=== PATIENT | male | born 1950 | race Caucasian/White ===

== ENCOUNTER 2017-03-02 07:46 | Day surgery (SDC) | payer OTHER ==
[2017-02-02 08:36] VITALS: BMI 26.5
[2017-03-02] MEDS ORDERED: Bupivacaine-Epi 0.25%-1:200,000 PF Inj ONE (08:21)
[2017-03-02] MEDS ORDERED: cefOXitin IV 1 gm in Dextrose 1 GM/50 ML BAG IVPB ONE (08:21)
[2017-03-02] MEDS ORDERED: Lidocaine 1% Inj (20ml) ONE (08:21)
[2017-03-02] MEDS ORDERED: Propofol 10 mg/ml Inj (20 ML) ONE (08:33)
[2017-03-02] MEDS ORDERED: Midazolam 2 MG/2 ML VIAL ONE (08:33)
[2017-03-02] MEDS ORDERED: Lactated Ringer's 1,000 ML IV ONE ×3 (09:54→11:30)
[2017-03-02] MEDS ORDERED: Rocuronium 10 mg/ml (5 ml) ONE (10:03)
[2017-03-02] MEDS ORDERED: Phenylephrine 10 mg/ml Inj ONE (10:40)
[2017-03-02] MEDS ORDERED: HYDROmorphone 0.5 mg/0.5 ml ISec IVP PRN (10:44)
[2017-03-02] MEDS ORDERED: Lactated Ringer's 1,000 ML IV SCH (10:45)
--- NOTE | 2017-03-02 11:36 | PCM.SURG1 ---
Surgeon's Initial Post Op Note - Surgeon's Notes Surgeon: Dr. Wright Mandarin Teacher: Chantel Heart, PGY2; Julieta Valdes, OMS-III Pre-Operative Diagnosis: Cholelithiasis, cholecystitis Operative Findings: See operative report Post-Operative Diagnosis: same Operation Performed: laparoscopic cholecystectomy Specimen/Specimens Removed: gallbladder Estimated Blood Loss: EBL {In ML}: 5 Date of Surgery/Procedure: 03/02/17 Time of Surgery/Procedure: 09:15
[2017-03-02] MEDS ORDERED: Oxycodone/Acetaminophen 5/325 mg Tab PO PRN (13:00)
[2017-03-02 15:08] VITALS: BP 169/55; PULSE 63; RESP 18; TEMP 97.7; O2SAT 96
--- NOTE | 2017-03-16 14:54 | PCM.OP ---
Operative Report - Operative Report Date of Surgery/Procedure: 03/02/17 Time of Surgery/Procedure: 09:00 Surgeon: James Wright MD. Maintenance Worker Municipal: Chantel Heart MD. Anesthesia/Sedation: General anesthesia. Pre-Operative Diagnosis: 1. Chronic cholecystitis and cholelithiasis Post-Operative Diagnosis: 1. Chronic cholecystitis and cholelithiasis Indication for Surgery: 1. Chronic cholecystitis and cholelithiasis Operative Findings: Patient had changes of chronic cholecystitis and cholelithiasis. Procedure/Operation Description: 1. Laparoscopic cholecystectomy. 67 y/o male was diagnosed with chronic cholecystitis and cholelithiasis. Patient was consented for laparoscopic cholecystectomy, possible open. Taken to OR, placed supine on operating table. After induction of the anesthesia, abdomen was prepped and draped in the usual sterile fashion. A supraumbilical, transverse 1.5 cm incision was made. After incising skin, subcutaneous tissue and fascia, the Sunni port was placed and pneumoperitoneum was created. The 12 mm port was placed in the midline below costal margin. Two 5 mm ports were placed in midclavicular and intra-axillary line. After that, grasper and dissector were introduced and the gallbladder was retracted. Calot's triangle accessed. The cystic duct and cystic artery were identified and clipped at three places and cut in between two clips. The gallbladder and gall ducts were dissected free from the gallbladder fossa, taken in an endocatch bag, taken out through the umbilical port site and then sent for the pathology. Proper hemostasis in each and every part of the procedure, and all ports were taken out and then under vision, pneumo was deflated. The umbilical port site was closed in two layers; the fascia with 0-vicryl sutures, skin with a 4-0 monocryl at all the port sites. Dry, sterile dressing was applied. Patient tolerated procedure well. The count of instruments was correct. There were no apparent complications. Estimated Blood Loss: 10 cc. Drains: None. Complications: None. Specimen: Gallbladder with gallstones sent for pathology. Discharge & Condition: stable
== END 2017-03-02 14:55 | disposition home or self-care (01) ==
LOC: C.SDS 07:46
PROVIDERS: ATTEND Surgery Surgical Critical Care
DX: K80.10 Calculus of gallbladder with chronic cholecystitis without obstruction (principal)
CPT/HCPCS: 47562; 82948; 88304; J0360; J2250; J2370; J2704; J3010; J7030; J7070; J7120

== ENCOUNTER 2018-07-08 11:32 | Inpatient (IN) | payer OTHER ==
[2018-07-08 11:33] VITALS: BMI 26.2
--- NOTE | 2018-07-08 13:03 | C.PDOC ---
Time Seen by Provider: 07/08/18 12:10 Chief Complaint (Nursing): Medical Clearance Past Medical History Vital Signs: Last Vital Signs Temp 98.8 F 07/08/18 11:37 Pulse 76 07/08/18 11:56 Resp 16 07/08/18 11:56 BP 175/65 H 07/08/18 11:56 Pulse Ox 99 07/08/18 11:37 - Medical History PMH: Diabetes, Gall Bladder Disease, HTN, Kidney Stones (passed on own no intervention) Denies: Alzheimer's Disease, Anemia, Anxiety, Asthma, Bipolar Disorder, Bronchitis, Cardia Arrhythmia, CHF, COPD, Dementia, Depression, Emphysema, HIV, Hypercholesterolemia, Hyperthyroidism, Hypothyroidism, Migraine, Mitral Valve Prolapse, Paranoia, Parkinson's Disease, Peripheral Edema, Pneumonia, Post Traumatic Stress Disorder, Chronic Kidney Disease, Schizophrenia, Seizures, Sickle Cell Disease, Sexually Transmitted Disease, Sleep Apnea, TIA Surgical History: Cholecystectomy Denies: Coronary Stent, Pacemaker - [facility] Procedures EXCIS DEEP CERVICAL NODE (02/14/14) - Social History Hx Tobacco Use: No Hx Alcohol Use: No Hx Substance Use: No - Immunization History Hx Tetanus Toxoid Vaccination: No Hx Influenza Vaccination: No Hx Pneumococcal Vaccination: No ED Course And Treatment O2 Sat by Pulse Oximetry: 99 Disposition - Disposition Forms: [employer]it ([place])
--- NOTE | 2018-07-08 13:03 | C.PDOC ---
History Of Present Illness 68 y/o male, with PMHx of HTN, CKD, DM, presents to ED for hypotension onset this morning. As per family, pt was eating breakfast when he felt lightheaded and felt as if he will pass out. Blood pressure was measured at that time and was found to be 75/40s and blood sugar was found to be 221. Pt was brought here for evaluation. Denies headache, fever, chills, visual changes, nausea, vomiting, syncope, chest pain, shortness of breath, or recent illness. He states has has boil to right lower back that developed 3 weeks ago which he is treating with warm compresses, Bacitracin, and taking Keflex. Pt states he has shingles to right upper back which is being treated by his PCP. Time Seen by Provider: 07/08/18 12:10 Chief Complaint (Nursing): Medical Clearance History Per: Patient History/Exam Limitations: no limitations Recent travel outside of the [place]: No Additional History Per: Patient Past Medical History Reviewed: Historical Data, Nursing Documentation, Vital Signs Vital Signs: Last Vital Signs Temp 98.8 F 07/08/18 11:37 Pulse 76 07/08/18 11:56 Resp 16 07/08/18 11:56 BP 175/65 H 07/08/18 11:56 Pulse Ox 99 07/08/18 11:37 - Medical History PMH: Diabetes, Gall Bladder Disease, HTN, Kidney Stones (passed on own no intervention) Denies: Alzheimer's Disease, Anemia, Anxiety, Asthma, Bipolar Disorder, Bronchitis, Cardia Arrhythmia, CHF, COPD, Dementia, Depression, Emphysema, HIV, Hypercholesterolemia, Hyperthyroidism, Hypothyroidism, Migraine, Mitral Valve Prolapse, Paranoia, Parkinson's Disease, Peripheral Edema, Pneumonia, Post Traumatic Stress Disorder, Chronic Kidney Disease, Schizophrenia, Seizures, Sickle Cell Disease, Sexually Transmitted Disease, Sleep Apnea, TIA Surgical History: Cholecystectomy Denies: Coronary Stent, Pacemaker - [facility] Procedures EXCIS DEEP CERVICAL NODE (02/14/14) Family History: States: Unknown Family Hx - Social History Hx Tobacco Use: No Hx Alcohol Use: No Hx Substance Use: No - Immunization History Hx Tetanus Toxoid Vaccination: No Hx Influenza Vaccination: No Hx Pneumococcal Vaccination: No Review Of Systems Constitutional: Negative for: Fever, Chills Eyes: Negative for: Vision Change Cardiovascular: Positive for: Light Headedness. Negative for: Chest Pain, Palpitations Respiratory: Negative for: Cough, Shortness of Breath Gastrointestinal: Negative for: Nausea, Vomiting, Abdominal Pain Musculoskeletal: Negative for: Neck Pain, Back Pain Neurological: Negative for: Weakness, Numbness, Headache Physical Exam - Physical Exam Appears: Non-toxic, No Acute Distress Skin: Warm, Dry, Other (5 x 3cm area of indurated wound draining pus in the right lower back, no fluctuance; multiple plaque like lesion to right upper back, no vesicular lesion, no excoriation) Head: Atraumatic, Normacephalic Eye(s): bilateral: Normal Inspection, PERRL, EOMI Oral Mucosa: Moist Neck: Normal ROM, Supple Chest: Symmetrical, No Tenderness Cardiovascular: Murmur (systolic) Respiratory: Normal Breath Sounds, No Rales, No Rhonchi, No Wheezing Gastrointestinal/Abdominal: Soft, No Tenderness Back: No CVA Tenderness, No Vertebral Tenderness Extremity: Normal ROM Neurological/Psych: Oriented x3, Normal Speech ED Course And Treatment - Laboratory Results Result Diagrams: 07/12/18 06:37 07/12/18 06:37 ECG: Interpreted By Me, Viewed By Me ECG Rhythm: Sinus Rhythm ECG Interpretation: No Acute Changes Interpretation Of ECG: Normal intervals, normal axis. No ST/T wave changes. Rate From EC O2 Sat by Pulse Oximetry: 99 (RA) Pulse Ox Interpretation: Normal Medical Decision Making Medical Decision Making: Plan: Blood work Urinalysis Blood/urine/wound culture EKG CXR Lactated Ringer Case discussed with Dr. Liset Sifuentes at 14:28 14:42 on reassessment, results was discussed with pt. Pt will be admitted for further care. Disposition Counseled Patient/Family Regarding: Studies Performed, Diagnosis - Disposition Disposition: HOSPITALIZED Disposition Time: 11:42 Condition: STABLE - POA Present On Arrival: None - Clinical Impression Clinical Impression: Wound infection, CKD (chronic kidney disease), stage IV, Uncontrolled diabetes mellitus - Scribe Statement The provider has reviewed the documentation as recorded by the Scribe KP All medical record entries made by the Scribe were at my direction and personally dictated by me. I have reviewed the chart and agree that the record accurately reflects my personal performance of the history, physical exam, medical decision making, and the department course for this patient. I have also personally directed, reviewed, and agree with the discharge instructions and disposition.
[2018-07-08 13:22] LABS: VENOUS BLOOD GAS BASE EXCESS -4.4 mmol/L (0.0-2.0); VENOUS BLOOD GAS PCO2 39 mmHg (40-60); VENOUS BLOOD GAS PO2 44 mm/Hg (30-55); VENOUS BLOOD PH 7.34 (7.32-7.43)
[2018-07-08] MEDS ORDERED: Lactated Ringer's 1,000 ML ONE (13:33)
[2018-07-08 13:39] LABS: BASO # 0.3 K/uL (0.0-0.2); BASO % 3.6 % (0.0-2.0); EOS # 1.5 K/uL (0.0-0.7); EOS % 16.4 % (0.0-4.0); HEMOGLOBIN 10.3 g/dL (12.0-18.0); LYMPH # 1.6 K/uL (1.0-4.3); LYMPH % 17.5 % (20.0-40.0); MEAN CELL VOLUME 83.7 fL (80.0-94.0); MEAN CORPUSCULAR HEMOGLOBIN 28.7 pg (27.0-31.0); MEAN CORPUSCULAR HGB CONC 34.3 g/dL (33.0-37.0); MEAN PLATELET VOLUME 8.8 fL (7.2-11.7); MONO # 0.4 K/uL (0.0-0.8); MONO % 4.4 % (0.0-10.0); NEUT # 5.2 K/uL (1.8-7.0); NEUT % 58.1 % (50.0-75.0); PLATELET COUNT 387 K/uL (130-400); RBC 3.58 Mil/uL (4.40-5.90); RED CELL DISTRIBUTION WIDTH 16.9 % (11.5-14.5); WHITE BLOOD COUNT 8.9 K/uL (4.8-10.8)
[2018-07-08 13:42] LABS: SQUAMOUS EPITHIAL < 1 /hpf (0-5); URINE BACTERIA RARE (<OCC); URINE BILIRUBIN NEGATIVE (NEGATIVE); URINE BLOOD NEGATIVE (NEGATIVE); URINE CLARITY Clear (Clear); URINE COLOR Yellow (YELLOW); URINE GLUCOSE (UA) 1+ mg/dL (Normal); URINE HYALINE CAST 0-2 /lpf (0-2); URINE LEUKOCYTE ESTERASE NEG Leu/uL (Negative); URINE PROTEIN 3+ mg/dL (NEGATIVE); URINE UROBILINOGEN NORMAL mg/dL (0.2-1.0)
[2018-07-08 13:47] LABS: ALB/GLOB RATIO 1.1 (1.0-2.1); ALBUMIN 3.6 g/dL (3.5-5.0); ALT/SGPT 83 U/L (21-72); AST/SGOT 64 U/L (17-59); BLOOD UREA NITROGEN 67 mg/dL (9-20); GFR NON-AFRICAN AMERICAN 19
--- NOTE | 2018-07-08 13:54 | RAD ---
Date of service: 07/08/2018 HISTORY: Sepsis Patient COMPARISON: Comparison chest 02/02/2017 FINDINGS: LUNGS: No active pulmonary disease. Persistent elevation right hemidiaphragm possibly due to eventration. There appears to be some mild right basilar atelectasis. PLEURA: No significant pleural effusion identified, no pneumothorax apparent. CARDIOVASCULAR: Mild aortic atherosclerotic calcification present. Cardiomegaly. No pulmonary vascular congestion. OSSEOUS STRUCTURES: No significant abnormalities. VISUALIZED UPPER ABDOMEN: Normal. OTHER FINDINGS: None. IMPRESSION: Persistent elevation right hemidiaphragm possibly due to eventration. Mild right basilar atelectasis. Cardiomegaly.
[2018-07-08] MEDS ORDERED: Vancomycin 1 gm/NS 200 ml 1 GM/200 ML BAG IVPB STA (14:15)
[2018-07-08] MEDS ORDERED: Piperacill/Tazo 3.375gm in Dex 3.375 GM/50 ML BAG IVPB STA (14:15)
[2018-07-08 14:25] LABS: INR 1.1; PROTHROMBIN TIME 11.7 SECONDS (9.7-12.2)
[2018-07-08] MEDS ORDERED: Piperacillin/Tazobact 3.375 gm 100 ML IVPB ONE (14:25)
[2018-07-08 15:48] LABS: BANDS 2 % (0-2); BASOPHIL 1 % (0-2); EOSINOPHIL 10 % (0-4); LYMPHOCYTE 9 % (20-40); NEUTROPHIL 76 % (50-75); PLATELET ESTIMATE NORMAL (NORMAL); REACTIVE LYMPHOCYTES 2 % (0-0); TOTAL CELLS COUNTED 100
[2018-07-08 15:49] LABS: ANISOCYTOSIS SLIGHT
[2018-07-08 15:51] LABS: HYPOCHROMIC SLIGHT; POIKILOCYTOSIS SLIGHT
[2018-07-08 15:52] LABS: OVALOCYTES SLIGHT; POLYCHROMIC SLIGHT
[2018-07-08 16:13] LABS: VENOUS BLOOD GAS BASE EXCESS -3.4 mmol/L (0.0-2.0); VENOUS BLOOD GAS PCO2 37 mmHg (40-60); VENOUS BLOOD GAS PO2 49 mm/Hg (30-55); VENOUS BLOOD PH 7.37 (7.32-7.43)
[2018-07-08] MEDS ORDERED: Glucagon Recombinant 1 mg Inj IM PRN (18:37)
[2018-07-08] MEDS ORDERED: Dextrose 50% SYRINGE Inj (50 ml) IV PRN (18:37)
[2018-07-08] MEDS: Sodium Chloride 0.45% 1,000 ML IV SCH (19:02)
[2018-07-08] MEDS: (Lantus) Insulin Glargine, Recombinant SC SCH ×2 (21:13)
[2018-07-08] MEDS: (Novolog) Insulin Aspart, Recombinant 100 u/ml 10 ml vial SC SCH (23:59)
--- NOTE | 2018-07-09 08:08 | CP.PCM.HP ---
History of Present Illness - History of Present Illness History of Present Illness: (Late Entry H & P. Patient seen yesterday 07/07/2018 at around 18:20 but I was unable to write the H & P) This is a 68 y/o male hypertensive and diabetic with known chronic renal insufficiency who was brought to the ER by family because of hypotension and near-syncopal attack. Patient was reportedly having breakfast when he sudenly f elt dizzy and lightheaded and weak and almost passed out. His BP taken by family at that time was 70/40. He denies any history of chest or abdominal pain, nausea or vomiting. He claims that he has had this feeling on and off over a few months that he attributes to his BP meds. The patient has an infected wound on his back for several weeks now for which he was given a p.o. antibiotic, Keflex by a relative who is a nurse practitioner. He claims that his wound seems to have improved and the redness around the edges has disappeared. He denies any fever, headache, wes loss or loss of appetite. He was advised to be admitted for further evaluation. Present on Admission - Present on Admission Any Indicators Present on Admission: Yes History of Uncontrolled Diabetes: Yes Review of Systems - Review of Systems All systems: reviewed and no additional remarkable complaints except - Constitutional Constitutional: Malaise, Weakness - EENT Eyes: As Per HPI Ears: As Per HPI Nose/Mouth/Throat: As Per HPI - Integumentary Integumentary: Rash, Wounds Additional comments: patient has telltale rash of shingles on the R side of the back. Has an infected that measures around 2 in x 1 in around the T6-T7 area covered with whitish discharge that had previously drained copious purulent material. No redness noted, non-tender. - Neurological Neurological: Confusion Past Patient History - Past Medical History & Family History Past Medical History?: Yes - Past Social History Smoking Status: Former Smoker Alcohol: Social Drugs: Denies Home Situation {Lives}: With Family - CARDIAC Hx Cardiac Disorders: Yes Hx Cardia Arrhythmia: No Hx Congestive Heart Failure: No Hx Hypercholesterolemia: No Hx Hypertension: Yes Hx Hypotension: Yes Hx Mitral Valve Prolapse: No Hx Pacemaker: No - PULMONARY Hx Respiratory Disorders: No Hx Asthma: No Hx Bronchitis: No Hx Chronic Obstructive Pulmonary Disease (COPD): No Hx Emphysema: No Hx Pneumonia: No Hx Sleep Apnea: No - NEUROLOGICAL Hx Neurological Disorder: No Hx Alzheimer's Disease: No Hx Dementia: No Hx Migraine: No Hx Parkinson's Disease: No Hx Seizures: No Hx Syncope: Yes Hx Transient Ischemic Attacks (TIA): No - HEENT Hx HEENT Problems: Yes Hx Cataracts: Yes - RENAL Hx Chronic Kidney Disease: Yes Hx Kidney Stones: Yes (passed on own no intervention) - ENDOCRINE/METABOLIC Hx Endocrine Disorders: Yes Hx Diabetes Mellitus Type 2: Yes Hx Hyperthyroidism: No Hx Hypothyroidism: No - HEMATOLOGICAL/ONCOLOGICAL Hx Blood Disorders: No Hx Anemia: No Hx Human Immunodeficiency Virus (HIV): No Hx Sickle Cell Disease: No - INTEGUMENTARY Hx Dermatological Problems: Yes Other/Comment: MASS OF NECK - MUSCULOSKELETAL/RHEUMATOLOGICAL Hx Falls: No - GASTROINTESTINAL Hx Gastrointestinal Disorders: No Hx Gall Bladder Disease: Yes - GENITOURINARY/GYNECOLOGICAL Hx Genitourinary Disorders: Yes Hx Prostate Problems: Yes Hx Sexually Transmitted Disorders: No - PSYCHIATRIC Hx Psychophysiologic Disorder: No Hx Anxiety: No Hx Bipolar Disorder: No Hx Depression: No Hx Paranoia: No Hx Post Traumatic Stress Disorder: No Hx Schizophrenia: No Hx Substance Use: No - SURGICAL HISTORY Hx Surgeries: Yes Hx Cholecystectomy: Yes Hx Coronary Stent: No - ANESTHESIA Hx Anesthesia: No Meds Home Medications: Home Medication List Medication Instructions Recorded Confirmed Type Furosemide [Lasix] 40 mg PO TTS #30 07/14/18 07/08/18 Rx Gabapentin [Neurontin] 100 mg PO TID #90 cap 07/14/18 Rx Insulin Aspart, Recombinant 8 unit SC AC #2 07/14/18 Rx [Novolog] Insulin Glargine, Recombina 20 unit SC HS unit 07/14/18 Rx [Lantus] amLODIPine [Norvasc] 10 mg PO DAILY tab 07/14/18 Rx cloNIDine [Catapres] 0.1 mg PO Q12H #60 tab 07/14/18 Rx hydrALAZINE [Apresoline] 25 mg PO BID #60 tab 07/14/18 Rx Allergies/Adverse Reactions: Allergies Allergy/AdvReac Type Severity Reaction Status Date / Time hair dye Allergy Unknown RASH Uncoded 06/29/17 08:07 Physical Exam - Constitutional Appears: No Acute Distress - Head Exam Head Exam: NORMAL INSPECTION - Eye Exam Eye Exam: EOMI, Normal appearance - Neck Exam Neck exam: Positive for: Full Rom, Normal Inspection - Respiratory Exam Respiratory Exam: Clear to Auscultation Bilateral, NORMAL BREATHING PATTERN - Cardiovascular Exam Cardiovascular Exam: REGULAR RHYTHM, +S1, +S2 - GI/Abdominal Exam GI & Abdominal Exam: Soft - Rectal Exam Rectal Exam: Deferred - Extremities Exam Extremities exam: Positive for: pedal edema - Skin Skin Exam: Dry, Intact, Warm Additional comments: infected wound measuring 2 x 1 in on the right back along the T6-T7 area. Results - Vital Signs Recent Vital Signs: Last Vital Signs Temp 99.2 F 07/08/18 23:05 Pulse 63 07/09/18 04:00 Resp 20 07/08/18 23:05 BP 157/72 H 07/08/18 23:05 Pulse Ox 97 07/08/18 23:05 - Labs Result Diagrams: 07/13/18 07:09 07/13/18 07:09 Labs: Laboratory Results - last 24 hr 07/08/18 07/08/18 07/08/18 13:13 13:13 13:13 WBC 8.9 RBC 3.58 L Hgb 10.3 L Hct 30.0 L MCV 83.7 D MCH 28.7 MCHC 34.3 RDW 16.9 H Plt Count 387 D MPV 8.8 Neut % (Auto) 58.1 Lymph % (Auto) 17.5 L Miller % (Auto) 4.4 Eos % (Auto) 16.4 H Baso % (Auto) 3.6 H Neut # (Auto) 5.2 Lymph # (Auto) 1.6 Miller # (Auto) 0.4 Eos # (Auto) 1.5 H Baso # (Auto) 0.3 H Neutrophils % (Manual) 76 H Band Neutrophils % 2 Lymphocytes % (Manual) 9 L Reactive Lymphs % 2 H Monocytes % (Manual) TEST NOT PERFORMED Eosinophils % (Manual) 10 H Basophils % (Manual) 1 Platelet Estimate Normal Polychromasia Slight Hypochromasia (manual) Slight Poikilocytosis (manual Slight Anisocytosis (manual) Slight Ovalocytes Slight PT 11.7 INR 1.1 APTT 40 H pO2 VBG pH VBG pCO2 VBG HCO3 VBG Total CO2 VBG O2 Sat (Calc) VBG Base Excess VBG Potassium Glucose Lactate FiO2 Sodium 137 Potassium 5.4 H Chloride 106 Carbon Dioxide 19 L Anion Gap 16 BUN 67 H Creatinine 3.2 H Est GFR ( Amer) 23 Est GFR (Non-Af Amer) 19 Random Glucose 236 H Calcium 9.0 Phosphorus 5.4 H Magnesium 2.4 H Total Bilirubin 0.7 AST 64 H D ALT 83 H Alkaline Phosphatase 259 H Troponin I < 0.0120 Total Protein 6.9 Albumin 3.6 Globulin 3.3 Albumin/Globulin Ratio 1.1 Venous Blood Potassium Urine Color Urine Clarity Urine pH Ur Specific [place] Urine Protein Urine Glucose (UA) Urine Ketones Urine Blood Urine Nitrate Urine Bilirubin Urine Urobilinogen Ur Leukocyte Esterase Urine WBC (Auto) Urine RBC (Auto) Ur Squamous Epith Cells Urine Bacteria Hyaline Casts 07/08/18 07/08/18 07/08/18 13:16 13:34 16:05 WBC RBC Hgb Hct MCV MCH MCHC RDW Plt Count MPV Neut % (Auto) Lymph % (Auto) Miller % (Auto) Eos % (Auto) Baso % (Auto) Neut # (Auto) Lymph # (Auto) Miller # (Auto) Eos # (Auto) Baso # (Auto) Neutrophils % (Manual) Band Neutrophils % Lymphocytes % (Manual) Reactive Lymphs % Monocytes % (Manual) Eosinophils % (Manual) Basophils % (Manual) Platelet Estimate Polychromasia Hypochromasia (manual) Poikilocytosis (manual Anisocytosis (manual) Ovalocytes PT INR APTT pO2 44 49 VBG pH 7.34 7.37 VBG pCO2 39 L 37 L VBG HCO3 20.9 21.9 VBG Total CO2 22.2 22.5 VBG O2 Sat (Calc) 86.9 H 90.5 H VBG Base Excess -4.4 L -3.4 L VBG Potassium 5.4 H 4.6 Glucose 298 H 244 H Lactate 1.1 0.8 FiO2 21.0 Sodium 138.0 138.0 Potassium Chloride 109.0 H 113.0 H Carbon Dioxide Anion Gap BUN Creatinine Est GFR ( Amer) Est GFR (Non-Af Amer) Random Glucose Calcium Phosphorus Magnesium Total Bilirubin AST ALT Alkaline Phosphatase Troponin I Total Protein Albumin Globulin Albumin/Globulin Ratio Venous Blood Potassium 5.4 H 4.6 Urine Color Yellow Urine Clarity Clear Urine pH 6.0 Ur Specific [place] 1.013 Urine Protein 3+ H Urine Glucose (UA) 1+ H Urine Ketones Negative Urine Blood Negative Urine Nitrate Negative Urine Bilirubin Negative Urine Urobilinogen Normal Ur Leukocyte Esterase Neg Urine WBC (Auto) 1 Urine RBC (Auto) < 1 Ur Squamous Epith Cells < 1 Urine Bacteria Rare Hyaline Casts 0-2 Assessment & Plan (1) Postural dizziness with near syncope Status: Resolved Priority: High (2) Wound infection Status: Acute Priority: High (3) Hypertension, uncontrolled Status: Chronic Priority: High (4) Uncontrolled diabetes mellitus Status: Chronic Priority: High (5) CKD (chronic kidney disease), stage IV Status: Chronic Priority: High Decision To Admit - Pt Status Changed To: Hospital Disposition Of: Inpatient - Admit Certification Admit to Inpatient:: After my assessment, the patient will require hospita lization for at least two midnights. This is because of the severity of symptoms shown, intensity of services needed, and/or the medical risk in this patient being treated as an outpatient. - InPatient: Physician Admission Certification:: After my assessment, the patient will require hospitalization for at least two midnights. This is because of the severity of symptoms shown, intensity of services needed, and/or the medical risk in this patient being treated as an outpatient. - . Bed Request Type: Telemetry Admitting Physician: Liset Sifuentes
[2018-07-09] MEDS: (Novolog) Insulin Aspart, Recombinant 100 u/ml 10 ml vial SC SCH ×4 (08:48→22:07)
[2018-07-09] MEDS: Pantoprazole 40 mg EC Tab PO SCH (08:48)
[2018-07-09] MEDS: Piperacill/Tazo 2.25gm in Dex 2.25 GM/50 ML BAG IVPB SCH ×2 (08:51→15:50)
[2018-07-09 09:46] LABS: CALCIUM 8.8 mg/dl (8.6-10.4)
[2018-07-09 09:54] LABS: TROPONIN I 0.031 ng/mL (0.00-0.120)
[2018-07-09 09:56] LABS: CK-MB 1.08 ng/mL (0.0-3.38)
[2018-07-09] MEDS: Sodium Chloride 0.45% 1,000 ML IV SCH ×2 (15:13→15:50)
[2018-07-09 17:12] LABS: CK-MB 1.48 ng/mL (0.0-3.38); TROPONIN I 0.024 ng/mL (0.00-0.120)
[2018-07-09] MEDS: Silver Sulfadiazine 1% Cream (20 gm) TOP SCH (17:15)
[2018-07-09] MEDS: (Lantus) Insulin Glargine, Recombinant SC SCH (22:07)
[2018-07-10] MEDS: Piperacill/Tazo 2.25gm in Dex 2.25 GM/50 ML BAG IVPB SCH ×3 (00:33→16:56)
[2018-07-10 07:40] LABS: ALB/GLOB RATIO 1.1 (1.0-2.1); ALBUMIN 2.9 g/dL (3.5-5.0); CALCIUM 8.4 mg/dl (8.6-10.4)
[2018-07-10 07:57] LABS: FREE T4 1.11 ng/dL (0.78-2.19)
[2018-07-10] MEDS: Pantoprazole 40 mg EC Tab PO SCH (08:18)
[2018-07-10] MEDS: (Novolog Mix 70/30) Insulin Aspart/Insulin Aspar 100 units/ml SC SCH (08:18)
[2018-07-10] MEDS: (Novolog) Insulin Aspart, Recombinant 100 u/ml 10 ml vial SC SCH ×4 (08:19→22:04)
[2018-07-10] MEDS: Silver Sulfadiazine 1% Cream (20 gm) TOP SCH ×2 (09:53→17:25)
--- NOTE | 2018-07-10 12:57 | CP.PCM.PN ---
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 Objective - Vital Signs/Intake and Output Vital Signs (last 24 hours): Temp Pulse Resp BP Pulse Ox 98.6 F 64 20 197/81 H 95 07/10/18 07:00 07/10/18 07:00 07/10/18 07:00 07/10/18 07:00 07/10/18 07:00 Intake and Output: 07/10/18 07/10/18 06:59 18:59 Intake Total 1280 Balance 1280 - Medications Medications: Current Medications Clonidine HCl (Catapres) 0.2 mg PO Q12H TERA Dextrose (Dextrose 50% Inj) 0 ml IV STAT PRN; Protocol PRN Reason: Hypoglycemia Protocol Dextrose (Glutose 15) 0 gm PO ONCE PRN; Protocol PRN Reason: Hypoglycemia Protocol Glucagon (Glucagen Diagnostic Kit) 0 mg IM STAT PRN; Protocol PRN Reason: Hypoglycemia Protocol Heparin Sodium (Porcine) (Heparin) 5,000 units SC Q12 TERA Last Admin: 07/10/18 09:52 Dose: 5,000 units Dextrose (Dextrose 5% In Water 1000 Ml) 1,000 mls @ 0 mls/hr IV .Q0M PRN; Protocol PRN Reason: Hypoglycemia Protocol Piperacillin Sod/Tazobactam Sod (Zosyn 2.25 Gm Iv Premix) 2.25 gm in 50 mls @ 100 mls/hr IVPB Q8H TERA; Protocol Last Admin: 07/10/18 08:18 Dose: 100 mls/hr Vancomycin HCl/Dextrose (Vancocin) 500 mg in 100 mls @ 67 mls/hr IVPB Q12H TERA; Protocol Stop: 07/15/18 12:46 Insulin Aspart (Novolog) 0 unit SC ACHS TERA; Protocol Last Admin: 07/10/18 12:02 Dose: 2 units Insulin Aspart (Novolog Mix 70/30 (70/30 Units/Ml)) 10 units SC ACB TERA Last Admin: 07/10/18 08:18 Dose: 10 u Insulin Glargine (Lantus) 15 unit SC HS [facility] Last Admin: 07/09/18 22:07 Dose: 15 units Losartan Potassium (Cozaar) 100 mg PO DAILY [facility] Last Admin: 07/10/18 09:51 Dose: 100 mg Pantoprazole Sodium (Protonix Ec Tab) 40 mg PO ACB [facility] Last Admin: 07/10/18 08:18 Dose: 40 mg Silver Sulfadiazine (Silvadene 1% 20 Gm) 1 ea TOP BID [facility] Last Admin: 07/10/18 09:53 Dose: 1 ea Tamsulosin HCl (Flomax) 0.4 mg PO DAILY [facility] Last Admin: 07/10/18 09:51 Dose: 0.4 mg - Labs Labs: 07/08/18 13:13 07/10/18 07:11 PT 11.7 SECONDS (9.7-12.2) 07/08/18 13:13 INR 1.1 07/08/18 13:13 APTT 40 SECONDS (21-34) H 07/08/18 13:13 - Constitutional Appears: No Acute Distress - Head Exam Head Exam: NORMAL INSPECTION - Eye Exam Eye Exam: Normal appearance - Neck Exam Neck Exam: Full ROM, Normal Inspection - Respiratory Exam Respiratory Exam: Clear to Ausculation Bilateral, NORMAL BREATHING PATTERN - Cardiovascular Exam Cardiovascular Exam: REGULAR RHYTHM, +S1, +S2 - GI/Abdominal Exam GI & Abdominal Exam: Soft, Normal Bowel Sounds - Extremities Exam Extremities Exam: Full ROM - Neurological Exam Neurological Exam: Alert, Oriented x3 - Skin Skin Exam: Dry, Intact, Normal Color, Warm Assessment and Plan (1) Postural dizziness with near syncope Status: Resolved (2) Wound infection Assessment & Plan: wound c/s- MRSA. ANtibiotic changed to Vanco and ID consultation requested. Status: Acute (3) Hypertension, uncontrolled Assessment & Plan: Added Amlodipine as BP still high. Status: Chronic (4) Uncontrolled diabetes mellitus Assessment & Plan: antidiabetics also being adjusted. Status: Chronic (5) CKD (chronic kidney disease), stage IV Status: Chronic
[2018-07-10] MEDS: Vancomycin 500mg/D5W 100 ml 500 MG/100 ML BAG IVPB SCH (13:45)
[2018-07-10] MEDS: (Lantus) Insulin Glargine, Recombinant SC SCH (22:03)
[2018-07-11] MEDS: Piperacill/Tazo 2.25gm in Dex 2.25 GM/50 ML BAG IVPB SCH ×3 (00:43→17:00)
[2018-07-11] MEDS ORDERED: (Lantus) Insulin Glargine, Recombinant SC SCH (00:56)
[2018-07-11] MEDS: Vancomycin 500mg/D5W 100 ml 500 MG/100 ML BAG IVPB SCH ×2 (02:57→13:48)
[2018-07-11 07:55] LABS: BASO # 0.3 K/uL (0.0-0.2); EOS # 1.7 K/uL (0.0-0.7); EOS % 23.2 % (0.0-4.0); HEMOGLOBIN 9.3 g/dL (12.0-18.0); LYMPH # 2.1 K/uL (1.0-4.3); LYMPH % 29.6 % (20.0-40.0); MEAN CELL VOLUME 82.9 fL (80.0-94.0); MEAN CORPUSCULAR HEMOGLOBIN 28.7 pg (27.0-31.0); MEAN CORPUSCULAR HGB CONC 34.6 g/dL (33.0-37.0); MEAN PLATELET VOLUME 8.3 fL (7.2-11.7); MONO # 0.4 K/uL (0.0-0.8); MONO % 5.9 % (0.0-10.0); NEUT # 2.7 K/uL (1.8-7.0); NEUT % 37.8 % (50.0-75.0); PLATELET COUNT 319 K/uL (130-400); RBC 3.23 Mil/uL (4.40-5.90); RED CELL DISTRIBUTION WIDTH 16.6 % (11.5-14.5); WHITE BLOOD COUNT 7.2 K/uL (4.8-10.8)
[2018-07-11 08:00] LABS: BASO % 1.4 % (0.0-2.0)
[2018-07-11] MEDS: Pantoprazole 40 mg EC Tab PO SCH (08:02)
[2018-07-11] MEDS: (Novolog Mix 70/30) Insulin Aspart/Insulin Aspar 100 units/ml SC SCH (08:02)
[2018-07-11] MEDS: (Novolog) Insulin Aspart, Recombinant 100 u/ml 10 ml vial SC SCH ×4 (08:03→21:54)
[2018-07-11 08:27] LABS: ALB/GLOB RATIO 0.9 (1.0-2.1); ALBUMIN 2.6 g/dL (3.5-5.0); CALCIUM 8.3 mg/dl (8.6-10.4)
[2018-07-11 08:42] LABS: ANISOCYTOSIS SLIGHT; EOSINOPHIL 28 % (0-4); HYPOCHROMIC SLIGHT; LYMPHOCYTE 32 % (20-40); MONOCYTE 4 % (0-10); NEUTROPHIL 35 % (50-75); PLATELET ESTIMATE NORMAL (NORMAL); POIKILOCYTOSIS SLIGHT; REACTIVE LYMPHOCYTES 1 % (0-0); TOTAL CELLS COUNTED 100
[2018-07-11 08:43] LABS: TARGET CELLS SLIGHT
[2018-07-11 08:44] LABS: OVALOCYTES SLIGHT
[2018-07-11] MEDS: Silver Sulfadiazine 1% Cream (20 gm) TOP SCH ×2 (10:58→18:45)
--- NOTE | 2018-07-11 12:11 | CP.PCM.CON ---
History of Present Illness - History of Present Illness History of Present Illness: 68 y/o male, with PMHx of HTN, CKD, DM, presents to ED for hypotension . He states has has boil to right lower back that developed 3 weeks ago which he is treating with warm compresses, Bacitracin, and taking Keflex. Pt states he has shingles to right upper back which is being treated by his PCP. ID requested for chest wound right side s/p shingles- failed out pt rxx with Keflex ? sepsis on admission- low BP organ dysfunction REGINALDO etc - Medical History PMH: Diabetes, Gall Bladder Disease, HTN, Kidney Stones (passed on own no intervention) Denies: Alzheimer's Disease, Anemia, Anxiety, Asthma, Bipolar Disorder, Bronchitis, Cardia Arrhythmia, CHF, COPD, Dementia, Depression, Emphysema, HIV, Hypercholesterolemia, Hyperthyroidism, Hypothyroidism, Migraine, Mitral Valve Prolapse, Paranoia, Parkinson's Disease, Peripheral Edema, Pneumonia, Post Traumatic Stress Disorder, Chronic Kidney Disease, Schizophrenia, Seizures, Sickle Cell Disease, Sexually Transmitted Disease, Sleep Apnea, TIA Surgical History: Cholecystectomy Denies: Coronary Stent, Pacemaker - Ryzing Procedures Review of Systems - Review of Systems All systems: reviewed and no additional remarkable complaints except Past Patient History - Past Medical History & Family History Past Medical History?: Yes - Past Social History Smoking Status: Former Smoker Alcohol: Social Drugs: Denies Home Situation {Lives}: With Family - CARDIAC Hx Cardiac Disorders: Yes Hx Cardia Arrhythmia: No Hx Congestive Heart Failure: No Hx Hypercholesterolemia: No Hx Hypertension: Yes Hx Hypotension: Yes Hx Mitral Valve Prolapse: No Hx Pacemaker: No - PULMONARY Hx Respiratory Disorders: No Hx Asthma: No Hx Bronchitis: No Hx Chronic Obstructive Pulmonary Disease (COPD): No Hx Emphysema: No Hx Pneumonia: No Hx Sleep Apnea: No - NEUROLOGICAL Hx Neurological Disorder: No Hx Alzheimer's Disease: No Hx Dementia: No Hx Migraine: No Hx Parkinson's Disease: No Hx Seizures: No Hx Syncope: Yes Hx Transient Ischemic Attacks (TIA): No - HEENT Hx HEENT Problems: Yes Hx Cataracts: Yes - RENAL Hx Chronic Kidney Disease: Yes Hx Kidney Stones: Yes (passed on own no intervention) - ENDOCRINE/METABOLIC Hx Endocrine Disorders: Yes Hx Diabetes Mellitus Type 2: Yes Hx Hyperthyroidism: No Hx Hypothyroidism: No - HEMATOLOGICAL/ONCOLOGICAL Hx Blood Disorders: No Hx Anemia: No Hx Human Immunodeficiency Virus (HIV): No Hx Sickle Cell Disease: No - INTEGUMENTARY Hx Dermatological Problems: Yes Other/Comment: MASS OF NECK - MUSCULOSKELETAL/RHEUMATOLOGICAL Hx Falls: No - GASTROINTESTINAL Hx Gastrointestinal Disorders: No Hx Gall Bladder Disease: Yes - GENITOURINARY/GYNECOLOGICAL Hx Genitourinary Disorders: Yes Hx Prostate Problems: Yes Hx Sexually Transmitted Disorders: No - PSYCHIATRIC Hx Psychophysiologic Disorder: No Hx Anxiety: No Hx Bipolar Disorder: No Hx Depression: No Hx Paranoia: No Hx Post Traumatic Stress Disorder: No Hx Schizophrenia: No Hx Substance Use: No - SURGICAL HISTORY Hx Surgeries: Yes Hx Cholecystectomy: Yes Hx Coronary Stent: No - ANESTHESIA Hx Anesthesia: No Meds Allergies/Adverse Reactions: Allergies Allergy/AdvReac Type Severity Reaction Status Date / Time hair dye Allergy Unknown RASH Uncoded 06/29/17 08:07 - Medications Medications: Current Medications Amlodipine Besylate (Norvasc) 5 mg PO DAILY [facility] Last Admin: 07/11/18 10:58 Dose: 5 mg Clonidine HCl (Catapres) 0.2 mg PO Q12H [facility] Last Admin: 07/11/18 11:21 Dose: 0.2 mg Dextrose (Dextrose 50% Inj) 0 ml IV STAT PRN; Protocol PRN Reason: Hypoglycemia Protocol Dextrose (Glutose 15) 0 gm PO ONCE PRN; Protocol PRN Reason: Hypoglycemia Protocol Gabapentin (Neurontin) 100 mg PO TID [facility] Last Admin: 07/11/18 10:57 Dose: 100 mg Glucagon (Glucagen Diagnostic Kit) 0 mg IM STAT PRN; Protocol PRN Reason: Hypoglycemia Protocol Heparin Sodium (Porcine) (Heparin) 5,000 units SC Q12 [facility] Last Admin: 07/11/18 10:57 Dose: 5,000 units Dextrose (Dextrose 5% In Water 1000 Ml) 1,000 mls @ 0 mls/hr IV .Q0M PRN; Protocol PRN Reason: Hypoglycemia Protocol Piperacillin Sod/Tazobactam Sod (Zosyn 2.25 Gm Iv Premix) 2.25 gm in 50 mls @ 100 mls/hr IVPB Q8H [facility]; Protocol Last Admin: 07/11/18 08:04 Dose: 100 mls/hr Vancomycin HCl/Dextrose (Vancocin) 500 mg in 100 mls @ 67 mls/hr IVPB Q12H [facility]; Protocol Stop: 07/15/18 14:01 Last Admin: 07/11/18 02:57 Dose: 67 mls/hr Insulin Aspart (Novolog) 0 unit SC ACHS [facility]; Protocol Last Admin: 07/11/18 12:08 Dose: 4 units Insulin Aspart (Novolog Mix 70/30 (70/30 Units/Ml)) 10 units SC ACB [facility] Last Admin: 07/11/18 08:02 Dose: 10 u Insulin Glargine (Lantus) 20 unit SC HS [facility] Losartan Potassium (Cozaar) 100 mg PO DAILY [facility] Last Admin: 07/11/18 10:57 Dose: 100 mg Pantoprazole Sodium (Protonix Ec Tab) 40 mg PO ACB [facility] Last Admin: 07/11/18 08:02 Dose: 40 mg Silver Sulfadiazine (Silvadene 1% 20 Gm) 1 ea TOP BID [facility] Last Admin: 07/11/18 10:58 Dose: 1 ea Tamsulosin HCl (Flomax) 0.4 mg PO DAILY [facility] Last Admin: 07/11/18 11:02 Dose: 0.4 mg Physical Exam - Constitutional Appears: No Acute Distress, Chronically Ill - Head Exam Head Exam: ATRAUMATIC, NORMOCEPHALIC - Eye Exam Eye Exam: absent: Scleral icterus - ENT Exam ENT Exam: Mucous Membranes Dry - Neck Exam Neck exam: Negative for: Lymphadenopathy - Respiratory Exam Respiratory Exam: Decreased Breath Sounds - Cardiovascular Exam Cardiovascular Exam: REGULAR RHYTHM - GI/Abdominal Exam GI & Abdominal Exam: Diminished Bowel Sounds, Soft - Rectal Exam Rectal Exam: Deferred - Exam Exam: NORMAL INSPECTION - Extremities Exam Extremities exam: Negative for: pedal edema - Back Exam Back exam: absent: CVA tenderness (L), CVA tenderness (R) - Neurological Exam Neurological exam: Alert, CN II-XII Intact - Psychiatric Exam Psychiatric exam: Depressed - Skin Skin Exam: Dry Additional comments: wound right upper back + Results - Vital Signs Recent Vital Signs: Last Vital Signs Temp 97.7 F 07/11/18 07:42 Pulse 54 L 07/11/18 07:42 Resp 20 07/11/18 07:42 BP 172/72 H 07/11/18 07:42 Pulse Ox 99 07/11/18 07:42 - Labs Result Diagrams: 07/11/18 07:32 07/11/18 07:32 Labs: Laboratory Results - last 24 hr 07/10/18 07/10/18 07/11/18 16:55 21:34 01:57 WBC RBC Hgb Hct MCV MCH MCHC RDW Plt Count MPV Neut % (Auto) Lymph % (Auto) [place] % (Auto) Eos % (Auto) Baso % (Auto) Neut # (Auto) Lymph # (Auto) [place] # (Auto) Eos # (Auto) Baso # (Auto) Neutrophils % (Manual) Lymphocytes % (Manual) Reactive Lymphs % Monocytes % (Manual) Eosinophils % (Manual) Platelet Estimate Hypochromasia (manual) Poikilocytosis (manual Anisocytosis (manual) Target Cells Ovalocytes Sodium Potassium Chloride Carbon Dioxide Anion Gap BUN Creatinine Est GFR ( Amer) Est GFR (Non-Af Amer) POC Glucose (mg/dL) 291 H 300 H 273 H Random Glucose Calcium Total Bilirubin AST ALT Alkaline Phosphatase Total Protein Albumin Globulin Albumin/Globulin Ratio 07/11/18 07/11/18 07/11/18 02:16 06:33 07:32 WBC 7.2 RBC 3.23 L Hgb 9.3 L Hct 26.8 L MCV 82.9 MCH 28.7 MCHC 34.6 RDW 16.6 H Plt Count 319 MPV 8.3 Neut % (Auto) 37.8 L Lymph % (Auto) 29.6 [place] % (Auto) 5.9 Eos % (Auto) 23.2 H Baso % (Auto) 1.4 Neut # (Auto) 2.7 Lymph # (Auto) 2.1 [place] # (Auto) 0.4 Eos # (Auto) 1.7 H Baso # (Auto) 0.3 H Neutrophils % (Manual) 35 L Lymphocytes % (Manual) 32 Reactive Lymphs % 1 H Monocytes % (Manual) 4 Eosinophils % (Manual) 28 H Platelet Estimate Normal Hypochromasia (manual) Slight Poikilocytosis (manual Slight Anisocytosis (manual) Slight Target Cells Slight Ovalocytes Slight Sodium Potassium Chloride Carbon Dioxide Anion Gap BUN Creatinine Est GFR ( Amer) Est GFR (Non-Af Amer) POC Glucose (mg/dL) 238 H 161 H Random Glucose Calcium Total Bilirubin AST ALT Alkaline Phosphatase Total Protein Albumin Globulin Albumin/Globulin Ratio 07/11/18 07:32 WBC RBC Hgb Hct MCV MCH MCHC RDW Plt Count MPV Neut % (Auto) Lymph % (Auto) [place] % (Auto) Eos % (Auto) Baso % (Auto) Neut # (Auto) Lymph # (Auto) [place] # (Auto) Eos # (Auto) Baso # (Auto) Neutrophils % (Manual) Lymphocytes % (Manual) Reactive Lymphs % Monocytes % (Manual) Eosinophils % (Manual) Platelet Estimate Hypochromasia (manual) Poikilocytosis (manual Anisocytosis (manual) Target Cells Ovalocytes Sodium 138 Potassium 4.0 Chloride 113 H Carbon Dioxide 21 L Anion Gap 9 L BUN 41 H Creatinine 2.9 H Est GFR ( Amer) 26 Est GFR (Non-Af Amer) 22 POC Glucose (mg/dL) Random Glucose 148 H Calcium 8.3 L Total Bilirubin 0.6 AST 36 ALT 55 Alkaline Phosphatase 211 H Total Protein 5.4 L Albumin 2.6 L Globulin 2.8 Albumin/Globulin Ratio 0.9 L Assessment & Plan (1) Hypotension Status: Acute (2) Wound infection Status: Acute Priority: High (3) Uncontrolled diabetes mellitus Status: Chronic Priority: High (4) CKD (chronic kidney disease), stage IV Status: Chronic Priority: High (5) HTN (hypertension) Status: Chronic Priority: Medium (6) Hypoglycemia Status: Resolved Priority: High - Assessment and Plan (Free Text) Assessment: cont Vanco/ zosyn check vanco levels cont wound care
--- NOTE | 2018-07-11 12:36 | CP.PCM.PN ---
Subjective - Date & Time of Evaluation Date of Evaluation: 07/11/18 Time of Evaluation: 12:20 - Subjective Subjective: Patient awake and alert, no complaints blood sugar still very much uncontrolled BP also quite elevated wound looks smaller and less tender but needs debridement ID consult noted and appreciated. Will get endocrinology and surgical consults Objective - Vital Signs/Intake and Output Vital Signs (last 24 hours): Temp Pulse Resp BP Pulse Ox 97.7 F 54 L 20 172/72 H 99 07/11/18 07:42 07/11/18 07:42 07/11/18 07:42 07/11/18 07:42 07/11/18 07:42 Intake and Output: 07/11/18 07/11/18 06:59 18:59 Intake Total 450 Balance 450 - Medications Medications: Current Medications Amlodipine Besylate (Norvasc) 5 mg PO DAILY [facility] Last Admin: 07/11/18 10:58 Dose: 5 mg Clonidine HCl (Catapres) 0.2 mg PO Q12H [facility] Last Admin: 07/11/18 11:21 Dose: 0.2 mg Dextrose (Dextrose 50% Inj) 0 ml IV STAT PRN; Protocol PRN Reason: Hypoglycemia Protocol Dextrose (Glutose 15) 0 gm PO ONCE PRN; Protocol PRN Reason: Hypoglycemia Protocol Gabapentin (Neurontin) 100 mg PO TID [facility] Last Admin: 07/11/18 10:57 Dose: 100 mg Glucagon (Glucagen Diagnostic Kit) 0 mg IM STAT PRN; Protocol PRN Reason: Hypoglycemia Protocol Heparin Sodium (Porcine) (Heparin) 5,000 units SC Q12 [facility] Last Admin: 07/11/18 10:57 Dose: 5,000 units Dextrose (Dextrose 5% In Water 1000 Ml) 1,000 mls @ 0 mls/hr IV .Q0M PRN; Protocol PRN Reason: Hypoglycemia Protocol Piperacillin Sod/Tazobactam Sod (Zosyn 2.25 Gm Iv Premix) 2.25 gm in 50 mls @ 100 mls/hr IVPB Q8H [facility]; Protocol Last Admin: 07/11/18 08:04 Dose: 100 mls/hr Vancomycin HCl/Dextrose (Vancocin) 500 mg in 100 mls @ 67 mls/hr IVPB Q12H [facility]; Protocol Stop: 07/15/18 14:01 Last Admin: 07/11/18 02:57 Dose: 67 mls/hr Insulin Aspart (Novolog) 0 unit SC ACHS [facility]; Protocol Last Admin: 07/11/18 12:08 Dose: 4 units Insulin Aspart (Novolog Mix 70/30 (70/30 Units/Ml)) 10 units SC ACB [facility] Last Admin: 07/11/18 08:02 Dose: 10 u Insulin Glargine (Lantus) 20 unit SC HS [facility] Losartan Potassium (Cozaar) 100 mg PO DAILY [facility] Last Admin: 07/11/18 10:57 Dose: 100 mg Pantoprazole Sodium (Protonix Ec Tab) 40 mg PO ACB [facility] Last Admin: 07/11/18 08:02 Dose: 40 mg Silver Sulfadiazine (Silvadene 1% 20 Gm) 1 ea TOP BID [facility] Last Admin: 07/11/18 10:58 Dose: 1 ea Tamsulosin HCl (Flomax) 0.4 mg PO DAILY [facility] Last Admin: 07/11/18 11:02 Dose: 0.4 mg - Labs Labs: 07/11/18 07:32 07/11/18 07:32 PT 11.7 SECONDS (9.7-12.2) 07/08/18 13:13 INR 1.1 07/08/18 13:13 APTT 40 SECONDS (21-34) H 07/08/18 13:13 - Constitutional Appears: No Acute Distress - Head Exam Head Exam: NORMAL INSPECTION - Eye Exam Eye Exam: Normal appearance - ENT Exam ENT Exam: Normal Exam - Neck Exam Neck Exam: Full ROM, Normal Inspection - Respiratory Exam Respiratory Exam: Clear to Ausculation Bilateral, NORMAL BREATHING PATTERN - Cardiovascular Exam Cardiovascular Exam: REGULAR RHYTHM, +S1, +S2 - GI/Abdominal Exam GI & Abdominal Exam: Soft, Normal Bowel Sounds - Extremities Exam Extremities Exam: Normal Inspection - Back Exam Back Exam: rash noted Additional comments: wound smaller and less tender - Neurological Exam Neurological Exam: Alert, Awake, Oriented x3 - Psychiatric Exam Psychiatric exam: Normal Affect, Normal Mood - Skin Skin Exam: Dry, Intact, Normal Color, Warm Assessment and Plan (1) Wound infection Assessment & Plan: MRSA and gram negative rods on wound culture. Will continue current antibiotics. Will also get surgical consult for debridement of wound. Status: Acute (2) Hypertension, uncontrolled Status: Chronic (3) Uncontrolled diabetes mellitus Assessment & Plan: Blood sugars remain high. Will get endocrinology consultation Status: Chronic (4) CKD (chronic kidney disease), stage IV Status: Chronic (5) Postural dizziness with near syncope Assessment & Plan: Further questioning of the patient revealed that he often gets this episode of dizziness andl lightheaded feeling after taking his BP meds and I tend to think that the initial hypotension with near syncope maybe related more to the aggressive BP treatment than to sepsis since the blood c/s did not grow any bacteria. Also the patient did not have any constitutional symptoms usually attending a septic process and his BP promptly went up to hypertensive levels once his BP meds were held. Hence I do not think that patient was septic when he was admitted. Status: Resolved
--- NOTE | 2018-07-11 16:13 | CP.PCM.CON ---
History of Present Illness - History of Present Illness History of Present Illness: Surgery Consult: Dr. Ward 68 Y/o M with a PMHx HTN, DM, CKD, Shingles was admitted to [facility] on 07/08/18 and is currently being treated here for hypotension. Surgery is currently being consulted for a wound on his right midback. The pt states that the wound started as a small pimple one month ago that grew larger and popped over time. He reports that at its worst the pain was a 7/10, but after antibiotics in the hospital the pain is now a 2/10. He complains of itching around the wound as well as itching in a dermatomal pattern in relation to his shingles rash. Denies fever, chills, headache, nausea/vomiting, chest pain or SOB. PMHx: as listed Surgical Hx: Neck cyst excision SocialHx: former smoker, 5 Pack year hx; denies EtOH/drugs Review of Systems - Review of Systems All systems: reviewed and no additional remarkable complaints except (as per HPI) - Hematologic/Lymphatic Additional comments: ROS Negative except for HPI Past Patient History - Infectious Disease Hx of Infectious Diseases: MRSA - Past Medical History & Family History Past Medical History?: Yes - Past Social History Smoking Status: Former Smoker Chewing Tobacco Use: No Cigar Use: No Alcohol: Social Drugs: Denies Home Situation {Lives}: With Family - CARDIAC Hx Cardiac Disorders: Yes Hx Cardia Arrhythmia: No Hx Congestive Heart Failure: No Hx Hypercholesterolemia: No Hx Hypertension: Yes - PULMONARY Hx Respiratory Disorders: No Hx Asthma: No Hx Bronchitis: No Hx Chronic Obstructive Pulmonary Disease (COPD): No Hx Emphysema: No Hx Pneumonia: No Hx Sleep Apnea: No - NEUROLOGICAL Hx Neurological Disorder: No Hx Alzheimer's Disease: No Hx Dementia: No Hx Migraine: No Hx Parkinson's Disease: No Hx Seizures: No Hx Transient Ischemic Attacks (TIA): No - HEENT Hx HEENT Problems: Yes Hx Cataracts: Yes - RENAL Hx Chronic Kidney Disease: Yes Hx Kidney Stones: No (passed on own no intervention) - ENDOCRINE/METABOLIC Hx Endocrine Disorders: Yes Hx Diabetes Mellitus Type 2: Yes Hx Hyperthyroidism: No Hx Hypothyroidism: No - HEMATOLOGICAL/ONCOLOGICAL Hx Blood Disorders: No Hx Anemia: No Hx Human Immunodeficiency Virus (HIV): No Hx Sickle Cell Disease: No - MUSCULOSKELETAL/RHEUMATOLOGICAL Hx Falls: No - PSYCHIATRIC Hx Psychophysiologic Disorder: No Hx Anxiety: No Hx Bipolar Disorder: No Hx Depression: No Hx Paranoia: No Hx Post Traumatic Stress Disorder: No Hx Schizophrenia: No Hx Substance Use: No - SURGICAL HISTORY Hx Surgeries: Yes - ANESTHESIA Hx Anesthesia: Yes Hx Anesthesia Reactions: No Meds Allergies/Adverse Reactions: Allergies Allergy/AdvReac Type Severity Reaction Status Date / Time hair dye Allergy Unknown RASH Uncoded 06/29/17 08:07 - Medications Medications: Current Medications Amlodipine Besylate (Norvasc) 5 mg PO DAILY [facility] Last Admin: 07/11/18 10:58 Dose: 5 mg Clonidine HCl (Catapres) 0.2 mg PO Q12H [facility] Last Admin: 07/11/18 11:21 Dose: 0.2 mg Dextrose (Dextrose 50% Inj) 0 ml IV STAT PRN; Protocol PRN Reason: Hypoglycemia Protocol Dextrose (Glutose 15) 0 gm PO ONCE PRN; Protocol PRN Reason: Hypoglycemia Protocol Gabapentin (Neurontin) 100 mg PO TID [facility] Last Admin: 07/11/18 13:47 Dose: 100 mg Glucagon (Glucagen Diagnostic Kit) 0 mg IM STAT PRN; Protocol PRN Reason: Hypoglycemia Protocol Heparin Sodium (Porcine) (Heparin) 5,000 units SC Q12 [facility] Last Admin: 07/11/18 10:57 Dose: 5,000 units Dextrose (Dextrose 5% In Water 1000 Ml) 1,000 mls @ 0 mls/hr IV .Q0M PRN; Protocol PRN Reason: Hypoglycemia Protocol Piperacillin Sod/Tazobactam Sod (Zosyn 2.25 Gm Iv Premix) 2.25 gm in 50 mls @ 100 mls/hr IVPB Q8H [facility]; Protocol Last Admin: 07/11/18 08:04 Dose: 100 mls/hr Vancomycin HCl/Dextrose (Vancocin) 500 mg in 100 mls @ 67 mls/hr IVPB Q12H [facility]; Protocol Stop: 07/15/18 14:01 Last Admin: 07/11/18 13:48 Dose: 67 mls/hr Insulin Aspart (Novolog) 6 unit SC AC [facility] Insulin Aspart (Novolog) 0 unit SC ACHS [facility] Insulin Glargine (Lantus) 20 unit SC HS [facility] Losartan Potassium (Cozaar) 100 mg PO DAILY [facility] Last Admin: 07/11/18 10:57 Dose: 100 mg Pantoprazole Sodium (Protonix Ec Tab) 40 mg PO ACB [facility] Last Admin: 07/11/18 08:02 Dose: 40 mg Silver Sulfadiazine (Silvadene 1% 20 Gm) 1 ea TOP BID [facility] Last Admin: 07/11/18 10:58 Dose: 1 ea Tamsulosin HCl (Flomax) 0.4 mg PO DAILY [facility] Last Admin: 07/11/18 11:02 Dose: 0.4 mg Physical Exam - Constitutional Appears: Well, No Acute Distress - Head Exam Head Exam: ATRAUMATIC, NORMOCEPHALIC - Eye Exam Eye Exam: EOMI - ENT Exam ENT Exam: Mucous Membranes Moist - Respiratory Exam Respiratory Exam: Clear to Auscultation Bilateral, NORMAL BREATHING PATTERN - Cardiovascular Exam Cardiovascular Exam: +S1, +S2 - GI/Abdominal Exam GI & Abdominal Exam: Normal Bowel Sounds, Soft - Neurological Exam Neurological exam: Alert, Oriented x3 - Skin Skin Exam: Dry Additional comments: 4-5cm circumferential wound on the right mid back, with exudate & necrotic tissue, surrounding erythema noted with some purulent discharge from the wound Results - Vital Signs Recent Vital Signs: Last Vital Signs Temp 97.7 F 07/11/18 07:42 Pulse 54 L 07/11/18 07:42 Resp 20 07/11/18 07:42 BP 172/72 H 07/11/18 07:42 Pulse Ox 99 07/11/18 07:42 - Labs Result Diagrams: 07/11/18 07:32 07/11/18 07:32 Labs: Laboratory Results - last 24 hr 07/10/18 07/10/18 07/11/18 16:55 21:34 01:57 WBC RBC Hgb Hct MCV MCH MCHC RDW Plt Count MPV Neut % (Auto) Lymph % (Auto) [place] % (Auto) Eos % (Auto) Baso % (Auto) Neut # (Auto) Lymph # (Auto) [place] # (Auto) Eos # (Auto) Baso # (Auto) Neutrophils % (Manual) Lymphocytes % (Manual) Reactive Lymphs % Monocytes % (Manual) Eosinophils % (Manual) Platelet Estimate Hypochromasia (manual) Poikilocytosis (manual Anisocytosis (manual) Target Cells Ovalocytes Sodium Potassium Chloride Carbon Dioxide Anion Gap BUN Creatinine Est GFR ( Amer) Est GFR (Non-Af Amer) POC Glucose (mg/dL) 291 H 300 H 273 H Random Glucose Calcium Total Bilirubin AST ALT Alkaline Phosphatase Total Protein Albumin Globulin Albumin/Globulin Ratio 07/11/18 07/11/18 07/11/18 02:16 06:33 07:32 WBC 7.2 RBC 3.23 L Hgb 9.3 L Hct 26.8 L MCV 82.9 MCH 28.7 MCHC 34.6 RDW 16.6 H Plt Count 319 MPV 8.3 Neut % (Auto) 37.8 L Lymph % (Auto) 29.6 [place] % (Auto) 5.9 Eos % (Auto) 23.2 H Baso % (Auto) 1.4 Neut # (Auto) 2.7 Lymph # (Auto) 2.1 [place] # (Auto) 0.4 Eos # (Auto) 1.7 H Baso # (Auto) 0.3 H Neutrophils % (Manual) 35 L Lymphocytes % (Manual) 32 Reactive Lymphs % 1 H Monocytes % (Manual) 4 Eosinophils % (Manual) 28 H Platelet Estimate Normal Hypochromasia (manual) Slight Poikilocytosis (manual Slight Anisocytosis (manual) Slight Target Cells Slight Ovalocytes Slight Sodium Potassium Chloride Carbon Dioxide Anion Gap BUN Creatinine Est GFR ( Amer) Est GFR (Non-Af Amer) POC Glucose (mg/dL) 238 H 161 H Random Glucose Calcium Total Bilirubin AST ALT Alkaline Phosphatase Total Protein Albumin Globulin Albumin/Globulin Ratio 07/11/18 07:32 WBC RBC Hgb Hct MCV MCH MCHC RDW Plt Count MPV Neut % (Auto) Lymph % (Auto) [place] % (Auto) Eos % (Auto) Baso % (Auto) Neut # (Auto) Lymph # (Auto) [place] # (Auto) Eos # (Auto) Baso # (Auto) Neutrophils % (Manual) Lymphocytes % (Manual) Reactive Lymphs % Monocytes % (Manual) Eosinophils % (Manual) Platelet Estimate Hypochromasia (manual) Poikilocytosis (manual Anisocytosis (manual) Target Cells Ovalocytes Sodium 138 Potassium 4.0 Chloride 113 H Carbon Dioxide 21 L Anion Gap 9 L BUN 41 H Creatinine 2.9 H Est GFR ( Amer) 26 Est GFR (Non-Af Amer) 22 POC Glucose (mg/dL) Random Glucose 148 H Calcium 8.3 L Total Bilirubin 0.6 AST 36 ALT 55 Alkaline Phosphatase 211 H Total Protein 5.4 L Albumin 2.6 L Globulin 2.8 Albumin/Globulin Ratio 0.9 L Assessment & Plan - Assessment and Plan (Free Text) Assessment: 68M with R back draining wound Plan: - plan for debridement of right mid back wound in the OR tomorrow - cont IV ABx - NPO after midnight - d/w Dr. Sylvia Hair
[2018-07-11] MEDS ORDERED: (Novolog) Insulin Aspart, Recombinant 100 u/ml 10 ml vial SC SCH (16:30)
--- NOTE | 2018-07-11 16:47 | CARD ---
APPROVED REPORT Date of service: 07/11/2018 EXAM: Two-dimensional and M-mode echocardiogram with Doppler and color Doppler. INDICATION Syncope RISK FACTORS Hypertension Diabetes 2D DIMENSIONS IVSd1.0 (0.7-1.1cm)LVDd5.0 (3.9-5.9cm) PWd1.3 (0.7-1.1cm)LA [id number] (18-58mL) LVDs2.9 (2.5-4.0cm)FS (%) 42.9 % LVEF (%)73.7 (>50%)LVEF (Reddy's)62.48 % M-Mode DIMENSIONS Left Atrium (MM)4.08 (2.5-4.0cm)IVSd1.17 (0.7-1.1cm) Aortic Root3.78 (2.2-3.7cm)LVDd5.79 (4.0-5.6cm) Aortic Cusp Exc.2.33 (1.5-2.0cm)PWd0.85 (0.7-1.1cm) FS (%) 44 %LVDs3.27 (2.0-3.8cm) LVEF (%)74 (>50%) Mitral Valve MV E Vbkoxvps21.5cm/sMV A Xxyxtxrh104.8cm/sE/A ratio0.8 TDI Lateral E' Peak V5.71cm/sMedial E' Peak V4.03cm/sE/Lateral E'15.5 E/Medial E'22.0 Tricuspid Valve TR Peak [id number]/sTR Peak Gr.91ydVyPXFK69ptLd LEFT VENTRICLE The left ventricle is normal size. There is normal left ventricular wall thickness. The left ventricular systolic function is normal. The left ventricular ejection fraction is within the normal range. There is normal LV segmental wall motion. Transmitral Doppler flow pattern is Grade I-abnormal relaxation pattern. Elevated left atrial pressure. RIGHT VENTRICLE The right ventricle is normal size. There is normal right ventricular wall thickness. The right ventricular systolic function is normal. ATRIA The left atrium is borderline dilated. The right atrium size is normal. The interatrial septum is intact with no evidence for an atrial septal defect. AORTIC VALVE The aortic valve is normal in structure. No aortic regurgitation is present. There is no aortic valvular stenosis. MITRAL VALVE The mitral valve is normal in structure. There is no mitral valve regurgitation noted. TRICUSPID VALVE The tricuspid valve is normal in structure. There is trace to mild tricuspid regurgitation. PULMONIC VALVE The pulmonary valve is normal in structure. There is trace pulmonic valvular regurgitation. GREAT VESSELS The aortic root is normal in size. The IVC is normal in size and collapses >50% with inspiration. PERICARDIAL EFFUSION There is a trace pericardial effusion best seen behind the right atrium. No evidence of tamponade. <Conclusion> There is a trace pericardial effusion best seen behind the right atrium. No evidence of tamponade. The left ventricular systolic function is normal. There is normal LV segmental wall motion. Grade I diastolic dysfunction. Elevated left atrial pressure. The right ventricular systolic function is normal. The left atrium is borderline dilated. No gross structural valvular abnormality. Insignificant trace to mild tricuspidand pulmonic regurgitation.
--- NOTE | 2018-07-11 21:00 | CON ---
DATE: 07/11/2018 LOCATION: Room 661. HISTORY OF PRESENT ILLNESS: This is a 68-year-old male with a known history of type 2 diabetes and hypertension with underlying chronic kidney disease, presenting here with a right upper back abscess with concomitant recent hepatic infection, is now being referred for diabetic evaluation because of persistent hyperglycemic accelerations as noted thereof. PAST MEDICAL HISTORY: As mentioned above, history of type 2 diabetes, on oral hypoglycemic therapy, the exact name is not known at this time; history of hypertension and dyslipidemia; history of diabetic polyneuropathy and nephropathy with underlying chronic kidney disease; history of recent shingles and persistent painful rash in the upper back area and also a wound infection in the same site with persistent drainage; history of nephrolithiasis with recent stone passage. FAMILY HISTORY: Positive for hypertension and diabetes. SOCIAL HISTORY: The patient is a former smoker, has a supportive family otherwise. REVIEW OF SYSTEMS: As mentioned above. Admits to generalized body weakness with episodic bouts of dizziness and lightheadedness, worse on the day of admission. No chest pains or palpitations, but admits to progressive shortness of breath, especially on exertion. His oral intake has been variable with nausea, dyspepsia and vague upper abdominal pain. Also admits to habitual constipation with marked polyuria, nocturia and polydipsia. PHYSICAL EXAMINATION GENERAL: Average built male, in no apparent distress. VITAL SIGNS: Blood pressure of 160/100, pulse of 80 beats per minute and regular, temperature 98, respirations 20. Height is 5 feet 5 inches, weight is 134 pounds. HEENT: Head is normocephalic. Eyes anicteric with pink conjunctivae. Funduscopy not possible at this time. Ears, nose and throat otherwise normal. NECK: Supple. Thyroid gland is normal in size. No carotid bruits or cervical adenopathy. CARDIOPULMONARY: Adynamic precordium. S1 and S2 are rapid and regular. LUNGS: Clear to auscultation. ABDOMEN: Flat, soft, with positive bowel sounds. EXTREMITIES: No peripheral edema. Pulse are +2 bilaterally. LABORATORY DATA: Chemistries showed a BUN of 41, sodium 138, potassium 4, chloride 113, CO2 of 21, glucose 148, creatinine 2.9. His GFR is 22. His hemoglobin A1c is 9.9% which is elevated and indicative of suboptimal metabolic control of his diabetic condition even prior to this admission. His initial glucose levels were ranging from 321 to 428 mg/dL as noted. ASSESSMENT: This is a 68-year-old male with uncontrolled and decompensated type 2 insulin-requiring diabetes, presenting here with marked hyperglycemic acceleration and concomitant right wound abscess in the back area with cultures positive for methicillin-resistant Staphylococcus aureus and Serratia bacteria as noted, also the recent hepatic infection as noted. He also has diabetic microvascular complications of polyneuropathy and nephropathy with underlying chronic kidney disease and progressive renal insufficiency. Final management was discussed with the patient and staff. We will modify his current insulin regimen to a more physiologic basal and bolus insulin drug combination to optimize metabolic control. We will continue the Lantus given as 20 units subcu at bedtime daily as given. We will add prandial insulin to cover the meal time insulin requirements and recent hyperglycemic accelerations as noted thereof. We will add Novolog given as 6 units t.i.d. before meals to start today. We will modify the coverage scale to obviate hypoglycemia, and detailed orders have been given. We will obtain serial chemistries and supplement accordingly as needed. We will follow advise accordingly. Mariana Ruelas MD
[2018-07-11] MEDS ORDERED: (Lantus) Insulin Glargine, Recombinant SC ONE (22:00)
[2018-07-12] MEDS: Piperacill/Tazo 2.25gm in Dex 2.25 GM/50 ML BAG IVPB SCH ×3 (00:52→17:30)
[2018-07-12] MEDS: Vancomycin 500mg/D5W 100 ml 500 MG/100 ML BAG IVPB SCH ×2 (05:21→16:24)
[2018-07-12 07:13] LABS: CALCIUM 8.3 mg/dl (8.6-10.4)
[2018-07-12] MEDS: (Novolog) Insulin Aspart, Recombinant 100 u/ml 10 ml vial SC SCH ×4 (07:30→22:54)
[2018-07-12 07:38] LABS: MEAN CELL VOLUME 82.5 fL (80.0-94.0); MEAN CORPUSCULAR HEMOGLOBIN 29.1 pg (27.0-31.0); MEAN CORPUSCULAR HGB CONC 35.3 g/dL (33.0-37.0); MEAN PLATELET VOLUME 8.5 fL (7.2-11.7); RBC 3.11 Mil/uL (4.40-5.90); RED CELL DISTRIBUTION WIDTH 16.7 % (11.5-14.5); WHITE BLOOD COUNT 7.1 K/uL (4.8-10.8)
[2018-07-12] MEDS: Pantoprazole 40 mg EC Tab PO SCH (09:03)
[2018-07-12] MEDS: Silver Sulfadiazine 1% Cream (20 gm) TOP SCH ×2 (09:04→17:31)
[2018-07-12] MEDS ORDERED: ceFAZolin 1 gm in NS 0 GM/0 ML BAG IVPB ONE (12:22)
[2018-07-12] MEDS ORDERED: Lidocaine 2% w Epi 1:100,000 Inj IJ ONE (12:22)
[2018-07-12] MEDS ORDERED: Midazolam 2 MG/2 ML VIAL ONE (12:36)
[2018-07-12] MEDS ORDERED: Propofol 10 mg/ml Inj (20 ML) ONE (12:36)
--- NOTE | 2018-07-12 13:14 | PCM.SURG1 ---
Surgeon's Initial Post Op Note - Surgeon's Notes Surgeon: Dr. Ward Pond Tender: Dr. Hair PGY-3, Daniella Villa MS3 Type of Anesthesia: IV Sedation, Local Pre-Operative Diagnosis: Right Back Wound Operative Findings: See operative report Post-Operative Diagnosis: Same Operation Performed: Debridement of R back wound Specimen/Specimens Removed: Debrided tissue Estimated Blood Loss: EBL {In ML}: 10 Blood Products Given: N/A Drains Used: No Drains Post-Op Condition: Good Date of Surgery/Procedure: 07/12/18 Time of Surgery/Procedure: 13:14
[2018-07-12] MEDS ORDERED: Oxycodone/Acetaminophen 5/325 mg Tab PO PRN (13:16)
[2018-07-12] MEDS ORDERED: HYDROmorphone 0.5 mg/0.5 ml ISec IVP PRN (13:20)
--- NOTE | 2018-07-12 15:53 | VASCLAB ---
Date of service: 07/11/2018 PROCEDURE: Carotid Duplex Exam. HISTORY: near syncope COMPARISON: None available. TECHNIQUE: Grayscale and duplex Doppler evaluation of the cervical carotid and vertebral arteries were performed. The common carotid, carotid bifurcations and cervical Internal Carotid Artery (ICA) and proximal External Carotid Artery (ECA) were evaluated. The vertebral arteries were evaluated for gross patency and flow direction. Report prepared by KRISSY Bradley FINDINGS: RIGHT CAROTID ARTERIES: 1. Common Carotid Artery: No significant focal plaque formation of the right common carotid artery. Maximum Peak Systolic velocity: 70 cm/sec: End-diastolic velocity 8 cm/sec. 2. Carotid Bifurcation: plaque formation. Maximum Peak Systolic velocity: 56 cm/sec: End-diastolic velocity 8 cm/sec. 3. Internal Carotid Artery: Plaque description: 3.1. Proximal Segment: Peak systolic velocity 70 cm/sec: End-diastolic velocity 11 cm/sec - % stenosis 0-15% 3.2. Middle Segment: Peak systolic velocity 82 cm/sec: End-diastolic velocity 14 cm/sec - % stenosis 0-15% 3.3. Distal Segment: Peak systolic velocity .58 cm/sec: End-diastolic velocity 11 cm/sec - % stenosis 0-15% 4. External Carotid Artery: No significant focal plaque formation. Peak systolic velocity 121 cm/sec 5. ICA/CCA Ratio: 1.3 LEFT CAROTID ARTERIES: 1. Common Carotid Artery: No significant focal plaque formation of the left common carotid artery. Maximum Peak Systolic velocity: 88 cm/sec: End-diastolic velocity 6 cm/sec. 2. Carotid Bifurcation: plaque formation. Maximum Peak Systolic velocity: 62 cm/sec: End-diastolic velocity 7 cm/sec. 3. Internal Carotid Artery: Plaque description: 3.1. Proximal Segment: Peak systolic velocity 52 cm/sec: End-diastolic velocity 11 cm/sec - % stenosis 0-15% 3.2. Middle Segment: Peak systolic velocity 58 cm/sec: End-diastolic velocity 9 cm/sec - % stenosis 0-15% 3.3. Distal Segment: Peak systolic velocity 43 cm/sec: End-diastolic velocity 11 cm/sec - % stenosis 0-15% 4. External Carotid Artery: No significant focal plaque formation. Peak systolic velocity 113 cm/sec 5. ICA/CCA Ratio: 0.7 VERTEBRAL ARTERIES: 1. Right Vertebral Artery: The right vertebral artery flow direction is antegrade. 2. Left Vertebral Artery: The left vertebral artery flow direction is antegrade. OTHER FINDINGS: None. IMPRESSION: RIGHT: Duplex scan does not suggest hemodynamically significant stenosis of the right extracranial carotid arteries. LEFT: Duplex scan does not suggest hemodynamically significant stenosis of the left extracranial carotid arteries.
[2018-07-12 17:04] VITALS: RESP 20
--- NOTE | 2018-07-12 17:08 | CP.PCM.PN ---
Subjective - Date & Time of Evaluation Date of Evaluation: 07/12/18 Time of Evaluation: 07:00 - Subjective Subjective: comfortable s/p I and D wound packed no active bleeding Objective - Vital Signs/Intake and Output Vital Signs (last 24 hours): Temp Pulse Resp BP Pulse Ox 97.4 F L 66 20 169/71 H 96 07/12/18 15:05 07/12/18 15:05 07/12/18 15:05 07/12/18 15:05 07/12/18 15:05 Intake and Output: 07/12/18 07/12/18 06:59 18:59 Intake Total 530 250 Output Total 300 Balance 230 250 - Medications Medications: Current Medications Amlodipine Besylate (Norvasc) 10 mg PO DAILY [facility] Last Admin: 07/12/18 09:00 Dose: 10 mg Clonidine HCl (Catapres) 0.1 mg PO Q12H [facility] Last Admin: 07/12/18 09:13 Dose: 0.1 mg Dextrose (Dextrose 50% Inj) 0 ml IV STAT PRN; Protocol PRN Reason: Hypoglycemia Protocol Dextrose (Glutose 15) 0 gm PO ONCE PRN; Protocol PRN Reason: Hypoglycemia Protocol Gabapentin (Neurontin) 100 mg PO TID [facility] Last Admin: 07/12/18 09:00 Dose: 100 mg Glucagon (Glucagen Diagnostic Kit) 0 mg IM STAT PRN; Protocol PRN Reason: Hypoglycemia Protocol Heparin Sodium (Porcine) (Heparin) 5,000 units SC Q12 [facility] Last Admin: 07/11/18 21:56 Dose: 5,000 units Hydralazine HCl (Apresoline) 25 mg PO BID [facility] Last Admin: 07/12/18 09:02 Dose: 25 mg Hydromorphone HCl (Dilaudid) 0.25 mg IVP Q5M PRN PRN Reason: Pain, moderate (4-7) Dextrose (Dextrose 5% In Water 1000 Ml) 1,000 mls @ 0 mls/hr IV .Q0M PRN; Protocol PRN Reason: Hypoglycemia Protocol Piperacillin Sod/Tazobactam Sod (Zosyn 2.25 Gm Iv Premix) 2.25 gm in 50 mls @ 100 mls/hr IVPB Q8H [facility]; Protocol Last Admin: 07/12/18 09:06 Dose: 100 mls/hr Vancomycin HCl/Dextrose (Vancocin) 500 mg in 100 mls @ 67 mls/hr IVPB Q12H [facility]; Protocol Stop: 07/15/18 14:01 Last Admin: 07/12/18 16:24 Dose: 67 mls/hr Insulin Aspart (Novolog) 6 unit SC AC TERA Last Admin: 07/11/18 17:22 Dose: 6 units Insulin Aspart (Novolog) 0 unit SC ACHS [facility] Last Admin: 07/12/18 11:30 Dose: Not Given Insulin Glargine (Lantus) 16 unit SC HS [facility] Losartan Potassium (Cozaar) 100 mg PO DAILY [facility] Last Admin: 07/12/18 09:02 Dose: 100 mg Oxycodone/Acetaminophen (Percocet 5/325 Mg Tab) 1 tab PO Q4H PRN PRN Reason: Pain, moderate (4-7) Stop: 07/15/18 13:17 Pantoprazole Sodium (Protonix Ec Tab) 40 mg PO ACB [facility] Last Admin: 07/12/18 09:03 Dose: 40 mg Silver Sulfadiazine (Silvadene 1% 20 Gm) 1 ea TOP BID [facility] Last Admin: 07/12/18 09:04 Dose: 1 applic Tamsulosin HCl (Flomax) 0.4 mg PO DAILY [facility] Last Admin: 07/12/18 09:02 Dose: 0.4 mg - Labs Labs: 07/12/18 06:37 07/12/18 06:37 PT 11.7 SECONDS (9.7-12.2) 07/08/18 13:13 INR 1.1 07/08/18 13:13 APTT 40 SECONDS (21-34) H 07/08/18 13:13 - Constitutional Appears: Non-toxic, Chronically Ill - Head Exam Head Exam: NORMOCEPHALIC - Eye Exam Eye Exam: absent: Scleral icterus - ENT Exam ENT Exam: Mucous Membranes Dry - Neck Exam Neck Exam: absent: Lymphadenopathy - Respiratory Exam Respiratory Exam: Decreased Breath Sounds - Cardiovascular Exam Cardiovascular Exam: REGULAR RHYTHM - GI/Abdominal Exam GI & Abdominal Exam: Distended - Rectal Exam Rectal Exam: Deferred - Exam Exam: NORMAL INSPECTION - Extremities Exam Extremities Exam: absent: Pedal Edema - Back Exam Back Exam: absent: CVA tenderness (L), CVA tenderness (R) - Neurological Exam Neurological Exam: Alert, Awake, Oriented x3 - Psychiatric Exam Psychiatric exam: Normal Mood - Skin Additional comments: wounfd packed Assessment and Plan (1) Hypotension Status: Acute (2) Wound infection Status: Acute (3) Uncontrolled diabetes mellitus Status: Chronic (4) CKD (chronic kidney disease), stage IV Status: Chronic (5) HTN (hypertension) Status: Chronic (6) Hypoglycemia Status: Resolved - Assessment and Plan (Free Text) Assessment: d/c on PO clinda or bactrim + cipro for 5 days wound care and surgical follow up
--- NOTE | 2018-07-12 17:12 | CP.PCM.PN ---
Subjective - Date & Time of Evaluation Date of Evaluation: 07/12/18 Time of Evaluation: 14:45 - Subjective Subjective: Patient had wound debridement earlier today. Tolerated the procedure well. Blood sugar and BP much better today. patient has been NPO from this morning also Post-herpetic neuropathy- itching of healed shingles lesions much improved on Gabapentin Appreciate Endo and Surgical inputs. C/S reports noted. Discussed with Dr. Montiel. Planning discharge tomorrow if ok with all consultants. Objective - Vital Signs/Intake and Output Vital Signs (last 24 hours): Temp Pulse Resp BP Pulse Ox 97.4 F L 66 20 169/71 H 96 07/12/18 15:05 07/12/18 15:05 07/12/18 15:05 07/12/18 15:05 07/12/18 15:05 Intake and Output: 07/12/18 07/12/18 06:59 18:59 Intake Total 530 250 Output Total 300 Balance 230 250 - Medications Medications: Current Medications Amlodipine Besylate (Norvasc) 10 mg PO DAILY [facility] Last Admin: 07/12/18 09:00 Dose: 10 mg Clonidine HCl (Catapres) 0.1 mg PO Q12H [facility] Last Admin: 07/12/18 09:13 Dose: 0.1 mg Dextrose (Dextrose 50% Inj) 0 ml IV STAT PRN; Protocol PRN Reason: Hypoglycemia Protocol Dextrose (Glutose 15) 0 gm PO ONCE PRN; Protocol PRN Reason: Hypoglycemia Protocol Gabapentin (Neurontin) 100 mg PO TID [facility] Last Admin: 07/12/18 09:00 Dose: 100 mg Glucagon (Glucagen Diagnostic Kit) 0 mg IM STAT PRN; Protocol PRN Reason: Hypoglycemia Protocol Heparin Sodium (Porcine) (Heparin) 5,000 units SC Q12 [facility] Last Admin: 07/11/18 21:56 Dose: 5,000 units Hydralazine HCl (Apresoline) 25 mg PO BID [facility] Last Admin: 07/12/18 09:02 Dose: 25 mg Hydromorphone HCl (Dilaudid) 0.25 mg IVP Q5M PRN PRN Reason: Pain, moderate (4-7) Dextrose (Dextrose 5% In Water 1000 Ml) 1,000 mls @ 0 mls/hr IV .Q0M PRN; Protocol PRN Reason: Hypoglycemia Protocol Piperacillin Sod/Tazobactam Sod (Zosyn 2.25 Gm Iv Premix) 2.25 gm in 50 mls @ 100 mls/hr IVPB Q8H [facility]; Protocol Last Admin: 07/12/18 09:06 Dose: 100 mls/hr Vancomycin HCl/Dextrose (Vancocin) 500 mg in 100 mls @ 67 mls/hr IVPB Q12H [facility]; Protocol Stop: 07/15/18 14:01 Last Admin: 07/12/18 16:24 Dose: 67 mls/hr Insulin Aspart (Novolog) 6 unit SC AC [facility] Last Admin: 07/11/18 17:22 Dose: 6 units Insulin Aspart (Novolog) 0 unit SC ACHS [facility] Last Admin: 07/12/18 11:30 Dose: Not Given Insulin Glargine (Lantus) 16 unit SC HS [facility] Losartan Potassium (Cozaar) 100 mg PO DAILY [facility] Last Admin: 07/12/18 09:02 Dose: 100 mg Oxycodone/Acetaminophen (Percocet 5/325 Mg Tab) 1 tab PO Q4H PRN PRN Reason: Pain, moderate (4-7) Stop: 07/15/18 13:17 Pantoprazole Sodium (Protonix Ec Tab) 40 mg PO ACB [facility] Last Admin: 07/12/18 09:03 Dose: 40 mg Silver Sulfadiazine (Silvadene 1% 20 Gm) 1 ea TOP BID [facility] Last Admin: 07/12/18 09:04 Dose: 1 applic Tamsulosin HCl (Flomax) 0.4 mg PO DAILY [facility] Last Admin: 07/12/18 09:02 Dose: 0.4 mg - Labs Labs: 07/12/18 06:37 07/12/18 06:37 PT 11.7 SECONDS (9.7-12.2) 07/08/18 13:13 INR 1.1 07/08/18 13:13 APTT 40 SECONDS (21-34) H 07/08/18 13:13 - Constitutional Appears: No Acute Distress - Eye Exam Eye Exam: Normal appearance - ENT Exam ENT Exam: Normal Exam - Neck Exam Neck Exam: Full ROM - Respiratory Exam Respiratory Exam: Clear to Ausculation Bilateral, NORMAL BREATHING PATTERN - Cardiovascular Exam Cardiovascular Exam: REGULAR RHYTHM, +S1, +S2 - GI/Abdominal Exam GI & Abdominal Exam: Soft, Normal Bowel Sounds - Skin Skin Exam: Intact, Normal Color, Warm Additional comments: s/p wound debridement Assessment and Plan (1) Wound infection Status: Acute (2) Hypertension, uncontrolled Status: Chronic (3) Uncontrolled diabetes mellitus Status: Chronic (4) CKD (chronic kidney disease), stage IV Status: Chronic (5) Postural dizziness with near syncope Status: Resolved
--- NOTE | 2018-07-12 21:18 | CARD ---
APPROVED REPORT Date of service: 07/10/2018 EKG Measurement Heart [id number] <Conclusion> Normal sinus rhythm Poor R wave progression Abnormal ECG
[2018-07-12] MEDS ORDERED: (Lantus) Insulin Glargine, Recombinant SC SCH (22:00)
--- NOTE | 2018-07-12 22:21 | PN ---
DATE: 07/12/2018 ENDOCRINOLOGY FOLLOWUP NOTE LOCATION: Room 667. This is 68-year-old male with recent uncontrolled type 2 insulin-requiring diabetes, now being followed closely for metabolic management. His glycemic levels today have improved as noted overnight with glucose levels ranging from 117 to 136 mg/dL. It was 122 at bedtime last night. His chemistry showed a BUN of 35, sodium 140, potassium 3.8, chloride 114, CO2 of 18, glucose 118, and creatinine 2.8. His calcium level is 8.3. Moreover, he also underwent an incision and drainage procedure of the right flank abscess and is currently still somnolent with variable oral intake as noted. So at this time, we will modify his insulin regimen and lower the NovoLog to 6 units subcu t.i.d. before meals to start today. We will also modify the basal insulin and lower the Lantus to 16 units subcu at bedtime daily to start tonight. We will obtain serial chemistries and supplement according as needed. We will also continue the low-dose correction scale using NovoLog insulin as given. We will obtain serial chemistries and supplement accordingly as needed. We will follow. Mariana Ruelas MD
[2018-07-13] MEDS: Piperacill/Tazo 2.25gm in Dex 2.25 GM/50 ML BAG IVPB SCH ×3 (00:23→17:36)
[2018-07-13] MEDS: Vancomycin 500mg/D5W 100 ml 500 MG/100 ML BAG IVPB SCH ×2 (01:24→15:01)
[2018-07-13] MEDS: Pantoprazole 40 mg EC Tab PO SCH (06:42)
[2018-07-13 07:19] LABS: HEMOGLOBIN 8.5 g/dL (12.0-18.0); MEAN CELL VOLUME 82.1 fL (80.0-94.0); MEAN CORPUSCULAR HEMOGLOBIN 29.1 pg (27.0-31.0); MEAN CORPUSCULAR HGB CONC 35.4 g/dL (33.0-37.0); MEAN PLATELET VOLUME 8.3 fL (7.2-11.7); RBC 2.94 Mil/uL (4.40-5.90); RED CELL DISTRIBUTION WIDTH 16.9 % (11.5-14.5); WHITE BLOOD COUNT 9.6 K/uL (4.8-10.8)
[2018-07-13] MEDS: (Novolog) Insulin Aspart, Recombinant 100 u/ml 10 ml vial SC SCH ×7 (07:30→21:41)
[2018-07-13] MEDS: Silver Sulfadiazine 1% Cream (20 gm) TOP SCH ×2 (10:00→17:39)
--- NOTE | 2018-07-13 10:54 | CP.PCM.PN ---
Subjective - Date & Time of Evaluation Date of Evaluation: 07/13/18 Time of Evaluation: 10:51 - Subjective Subjective: Surgery: Dr. Ward Pt seen and examined. No acute overnight events. Pt states he feels well and denies any complaints at this time. Admits to some pain around the debridement site on the back. Denies fevers/chills, nausea/vomiting. Objective - Vital Signs/Intake and Output Vital Signs (last 24 hours): Temp Pulse Resp BP Pulse Ox 98.2 F 62 20 127/79 96 07/13/18 07:30 07/13/18 07:30 07/13/18 07:30 07/13/18 07:30 07/13/18 07:30 Intake and Output: 07/13/18 07/13/18 06:59 18:59 Intake Total 260 Output Total 80 Balance 180 - Medications Medications: Current Medications Amlodipine Besylate (Norvasc) 10 mg PO DAILY [facility] Last Admin: 07/13/18 09:59 Dose: 10 mg Clonidine HCl (Catapres) 0.1 mg PO Q12H [facility] Last Admin: 07/13/18 09:59 Dose: 0.1 mg Dextrose (Dextrose 50% Inj) 0 ml IV STAT PRN; Protocol PRN Reason: Hypoglycemia Protocol Dextrose (Glutose 15) 0 gm PO ONCE PRN; Protocol PRN Reason: Hypoglycemia Protocol Gabapentin (Neurontin) 100 mg PO TID [facility] Last Admin: 07/13/18 10:18 Dose: 100 mg Glucagon (Glucagen Diagnostic Kit) 0 mg IM STAT PRN; Protocol PRN Reason: Hypoglycemia Protocol Heparin Sodium (Porcine) (Heparin) 5,000 units SC Q12 [facility] Last Admin: 07/11/18 21:56 Dose: 5,000 units Hydralazine HCl (Apresoline) 25 mg PO BID [facility] Last Admin: 07/13/18 09:59 Dose: 25 mg Hydromorphone HCl (Dilaudid) 0.25 mg IVP Q5M PRN PRN Reason: Pain, moderate (4-7) Dextrose (Dextrose 5% In Water 1000 Ml) 1,000 mls @ 0 mls/hr IV .Q0M PRN; Protocol PRN Reason: Hypoglycemia Protocol Piperacillin Sod/Tazobactam Sod (Zosyn 2.25 Gm Iv Premix) 2.25 gm in 50 mls @ 100 mls/hr IVPB Q8H [facility]; Protocol Last Admin: 07/13/18 08:36 Dose: 100 mls/hr Vancomycin HCl/Dextrose (Vancocin) 500 mg in 100 mls @ 67 mls/hr IVPB Q12H [facility]; Protocol Stop: 07/15/18 14:01 Last Admin: 07/13/18 01:24 Dose: 67 mls/hr Insulin Aspart (Novolog) 0 unit SC ACHS [facility] Last Admin: 07/13/18 07:30 Dose: Not Given Insulin Aspart (Novolog) 4 unit SC AC TERA Last Admin: 07/13/18 07:30 Dose: 4 units Insulin Glargine (Lantus) 16 unit SC HS [facility] Last Admin: 07/12/18 22:55 Dose: 16 units Losartan Potassium (Cozaar) 100 mg PO DAILY [facility] Last Admin: 07/13/18 09:59 Dose: 100 mg Oxycodone/Acetaminophen (Percocet 5/325 Mg Tab) 1 tab PO Q4H PRN PRN Reason: Pain, moderate (4-7) Stop: 07/15/18 13:17 Pantoprazole Sodium (Protonix Ec Tab) 40 mg PO ACB [facility] Last Admin: 07/13/18 06:42 Dose: 40 mg Silver Sulfadiazine (Silvadene 1% 20 Gm) 1 ea TOP BID [facility] Last Admin: 07/12/18 17:31 Dose: Not Given Tamsulosin HCl (Flomax) 0.4 mg PO DAILY [facility] Last Admin: 07/13/18 09:59 Dose: 0.4 mg - Labs Labs: 07/13/18 07:09 07/13/18 07:09 PT 11.7 SECONDS (9.7-12.2) 07/08/18 13:13 INR 1.1 07/08/18 13:13 APTT 40 SECONDS (21-34) H 07/08/18 13:13 - Constitutional Appears: Well, No Acute Distress - Head Exam Head Exam: ATRAUMATIC, NORMOCEPHALIC - Eye Exam Eye Exam: Normal appearance - Respiratory Exam Respiratory Exam: NORMAL BREATHING PATTERN - Cardiovascular Exam Cardiovascular Exam: RRR - GI/Abdominal Exam GI & Abdominal Exam: Soft - Back Exam Additional comments: R back wound with packing, dressing with serosang drainage - Neurological Exam Neurological Exam: Alert, Awake, Oriented x3 - Skin Skin Exam: Dry, Warm Assessment and Plan - Assessment and Plan (Free Text) Assessment: 68M s/p debridement of R back wound; POD#1 Plan: - will change packing tomorrow - cont ABx per ID recs - d/w Dr. Sylvia Hair
--- NOTE | 2018-07-13 16:12 | CP.PCM.PN ---
Subjective - Date & Time of Evaluation Date of Evaluation: 07/13/18 Time of Evaluation: 09:00 - Subjective Subjective: afeb alert nad packing in place Objective - Vital Signs/Intake and Output Vital Signs (last 24 hours): Temp Pulse Resp BP Pulse Ox 98.2 F 62 20 127/79 96 07/13/18 07:30 07/13/18 07:30 07/13/18 07:30 07/13/18 07:30 07/13/18 07:30 Intake and Output: 07/13/18 07/13/18 06:59 18:59 Intake Total 260 Output Total 80 Balance 180 - Medications Medications: Current Medications Amlodipine Besylate (Norvasc) 10 mg PO DAILY [facility] Last Admin: 07/13/18 09:59 Dose: 10 mg Clonidine HCl (Catapres) 0.1 mg PO Q12H [facility] Last Admin: 07/13/18 09:59 Dose: 0.1 mg Dextrose (Dextrose 50% Inj) 0 ml IV STAT PRN; Protocol PRN Reason: Hypoglycemia Protocol Dextrose (Glutose 15) 0 gm PO ONCE PRN; Protocol PRN Reason: Hypoglycemia Protocol Gabapentin (Neurontin) 100 mg PO TID [facility] Last Admin: 07/13/18 10:18 Dose: 100 mg Glucagon (Glucagen Diagnostic Kit) 0 mg IM STAT PRN; Protocol PRN Reason: Hypoglycemia Protocol Heparin Sodium (Porcine) (Heparin) 5,000 units SC Q12 [facility] Last Admin: 07/11/18 21:56 Dose: 5,000 units Hydralazine HCl (Apresoline) 25 mg PO BID [facility] Last Admin: 07/13/18 09:59 Dose: 25 mg Hydromorphone HCl (Dilaudid) 0.25 mg IVP Q5M PRN PRN Reason: Pain, moderate (4-7) Dextrose (Dextrose 5% In Water 1000 Ml) 1,000 mls @ 0 mls/hr IV .Q0M PRN; Protocol PRN Reason: Hypoglycemia Protocol Piperacillin Sod/Tazobactam Sod (Zosyn 2.25 Gm Iv Premix) 2.25 gm in 50 mls @ 100 mls/hr IVPB Q8H [facility]; Protocol Last Admin: 07/13/18 08:36 Dose: 100 mls/hr Vancomycin HCl/Dextrose (Vancocin) 500 mg in 100 mls @ 67 mls/hr IVPB Q12H [facility]; Protocol Stop: 07/15/18 14:01 Last Admin: 07/13/18 15:01 Dose: 67 mls/hr Insulin Aspart (Novolog) 0 unit SC ACHS [facility] Last Admin: 07/13/18 12:21 Dose: Not Given Insulin Aspart (Novolog) 8 unit SC AC [facility] Insulin Glargine (Lantus) 20 unit SC HS [facility] Losartan Potassium (Cozaar) 100 mg PO DAILY [facility] Last Admin: 07/13/18 09:59 Dose: 100 mg Oxycodone/Acetaminophen (Percocet 5/325 Mg Tab) 1 tab PO Q4H PRN PRN Reason: Pain, moderate (4-7) Stop: 07/15/18 13:17 Pantoprazole Sodium (Protonix Ec Tab) 40 mg PO ACB [facility] Last Admin: 07/13/18 06:42 Dose: 40 mg Silver Sulfadiazine (Silvadene 1% 20 Gm) 1 ea TOP BID [facility] Last Admin: 07/12/18 17:31 Dose: Not Given Tamsulosin HCl (Flomax) 0.4 mg PO DAILY [facility] Last Admin: 07/13/18 09:59 Dose: 0.4 mg - Labs Labs: 07/13/18 07:09 07/13/18 07:09 PT 11.7 SECONDS (9.7-12.2) 07/08/18 13:13 INR 1.1 07/08/18 13:13 APTT 40 SECONDS (21-34) H 07/08/18 13:13 - Constitutional Appears: Non-toxic, Chronically Ill - Head Exam Head Exam: NORMOCEPHALIC - Eye Exam Eye Exam: absent: Scleral icterus - ENT Exam ENT Exam: Mucous Membranes Dry - Neck Exam Neck Exam: absent: Lymphadenopathy - Respiratory Exam Respiratory Exam: Decreased Breath Sounds - Cardiovascular Exam Cardiovascular Exam: REGULAR RHYTHM - GI/Abdominal Exam GI & Abdominal Exam: Distended - Rectal Exam Rectal Exam: Deferred - Exam Exam: NORMAL INSPECTION Assessment and Plan (1) Hypotension Status: Acute (2) Wound infection Status: Acute (3) Uncontrolled diabetes mellitus Status: Chronic (4) CKD (chronic kidney disease), stage IV Status: Chronic (5) HTN (hypertension) Status: Chronic (6) Hypoglycemia Status: Resolved - Assessment and Plan (Free Text) Assessment: d/c on PO meds with wound care PO Cipro 500 once daily and Clinda 300 TID for 5 days
--- NOTE | 2018-07-13 16:29 | CP.PCM.PN ---
Subjective - Date & Time of Evaluation Date of Evaluation: 07/13/18 Time of Evaluation: 15:50 - Subjective Subjective: Patient comfortable, no complaints. consultants' follow up appreciated Blood sugar fluctuations discussed with endo. To start with regular injections of humalog in addition to Lantus. Wound still has packing. Continuye IV antibiotics now. Will plan discharge for tomorrow if ok with surgery and put on po meds from then. Objective - Vital Signs/Intake and Output Vital Signs (last 24 hours): Temp Pulse Resp BP Pulse Ox 98.2 F 62 20 127/79 96 07/13/18 07:30 07/13/18 07:30 07/13/18 07:30 07/13/18 07:30 07/13/18 07:30 Intake and Output: 07/13/18 07/13/18 06:59 18:59 Intake Total 260 Output Total 80 Balance 180 - Medications Medications: Current Medications Amlodipine Besylate (Norvasc) 10 mg PO DAILY [facility] Last Admin: 07/13/18 09:59 Dose: 10 mg Clonidine HCl (Catapres) 0.1 mg PO Q12H [facility] Last Admin: 07/13/18 09:59 Dose: 0.1 mg Dextrose (Dextrose 50% Inj) 0 ml IV STAT PRN; Protocol PRN Reason: Hypoglycemia Protocol Dextrose (Glutose 15) 0 gm PO ONCE PRN; Protocol PRN Reason: Hypoglycemia Protocol Gabapentin (Neurontin) 100 mg PO TID [facility] Last Admin: 07/13/18 14:30 Dose: 100 mg Glucagon (Glucagen Diagnostic Kit) 0 mg IM STAT PRN; Protocol PRN Reason: Hypoglycemia Protocol Heparin Sodium (Porcine) (Heparin) 5,000 units SC Q12 [facility] Last Admin: 07/11/18 21:56 Dose: 5,000 units Hydralazine HCl (Apresoline) 25 mg PO BID [facility] Last Admin: 07/13/18 09:59 Dose: 25 mg Hydromorphone HCl (Dilaudid) 0.25 mg IVP Q5M PRN PRN Reason: Pain, moderate (4-7) Dextrose (Dextrose 5% In Water 1000 Ml) 1,000 mls @ 0 mls/hr IV .Q0M PRN; Protocol PRN Reason: Hypoglycemia Protocol Piperacillin Sod/Tazobactam Sod (Zosyn 2.25 Gm Iv Premix) 2.25 gm in 50 mls @ 100 mls/hr IVPB Q8H [facility]; Protocol Last Admin: 07/13/18 08:36 Dose: 100 mls/hr Vancomycin HCl/Dextrose (Vancocin) 500 mg in 100 mls @ 67 mls/hr IVPB Q12H [facility]; Protocol Stop: 07/15/18 14:01 Last Admin: 07/13/18 15:01 Dose: 67 mls/hr Insulin Aspart (Novolog) 0 unit SC ACHS [facility] Last Admin: 07/13/18 12:21 Dose: Not Given Insulin Aspart (Novolog) 8 unit SC AC [facility] Insulin Glargine (Lantus) 20 unit SC HS [facility] Losartan Potassium (Cozaar) 100 mg PO DAILY [facility] Last Admin: 07/13/18 09:59 Dose: 100 mg Oxycodone/Acetaminophen (Percocet 5/325 Mg Tab) 1 tab PO Q4H PRN PRN Reason: Pain, moderate (4-7) Stop: 07/15/18 13:17 Pantoprazole Sodium (Protonix Ec Tab) 40 mg PO ACB [facility] Last Admin: 07/13/18 06:42 Dose: 40 mg Silver Sulfadiazine (Silvadene 1% 20 Gm) 1 ea TOP BID [facility] Last Admin: 07/13/18 10:00 Dose: Not Given Tamsulosin HCl (Flomax) 0.4 mg PO DAILY [facility] Last Admin: 07/13/18 09:59 Dose: 0.4 mg - Labs Labs: 07/13/18 07:09 07/13/18 07:09 PT 11.7 SECONDS (9.7-12.2) 07/08/18 13:13 INR 1.1 07/08/18 13:13 APTT 40 SECONDS (21-34) H 07/08/18 13:13 - Head Exam Head Exam: NORMOCEPHALIC - Eye Exam Eye Exam: Normal appearance - ENT Exam ENT Exam: Mucous Membranes Moist - Neck Exam Neck Exam: Normal Inspection - Respiratory Exam Respiratory Exam: Clear to Ausculation Bilateral, NORMAL BREATHING PATTERN - Cardiovascular Exam Cardiovascular Exam: REGULAR RHYTHM, +S1, +S2 - GI/Abdominal Exam GI & Abdominal Exam: Soft, Normal Bowel Sounds - Back Exam Additional comments: w/p debridement of wound. Currently still with packing intact. - Neurological Exam Neurological Exam: Alert, Awake, Normal Gait, Oriented x3 - Skin Skin Exam: Abrasion, Dry, Intact, Warm Assessment and Plan (1) Wound infection Status: Acute (2) Hypertension, uncontrolled Assessment & Plan: BP monitored and meds being adjusted Status: Chronic (3) Uncontrolled diabetes mellitus Status: Chronic (4) CKD (chronic kidney disease), stage IV Status: Chronic (5) Postural dizziness with near syncope Status: Resolved
--- NOTE | 2018-07-13 17:17 | CARD ---
APPROVED REPORT Date of service: 07/09/2018 EKG Measurement Heart [id number] <Conclusion> Normal sinus rhythm Normal ECG
[2018-07-13] MEDS ORDERED: (Lantus) Insulin Glargine, Recombinant SC SCH (22:00)
[2018-07-14] MEDS: Piperacill/Tazo 2.25gm in Dex 2.25 GM/50 ML BAG IVPB SCH ×2 (01:05→10:10)
--- NOTE | 2018-07-14 01:14 | PN ---
DATE: 07/13/2018 ENDOCRINOLOGY FOLLOWUP NOTE LOCATION: Room 667. SUBJECTIVE: This is a 68-year-old male with recent uncontrolled type 2 insulin-requiring diabetes, now being followed closely for metabolic management. He underwent recent drainage and debridement of his right flank abscess and currently receiving IV antibiotic management as noted. However, his glycemic fluctuations continued with hyperglycemic accelerations noted today and glucose values ranging from 191-348 and 371 mg per dL. LABORATORY DATA: His chemistry showed a BUN of 35, sodium 138, potassium 3.9, chloride 111, CO2 16, glucose 188, and creatinine 2.9. ASSESSMENT AND PLAN: So at this time, we will modify once again his basal and bolus insulin regimen and actually add prandial insulin with NovoLog to be given as 8 units t.i.d. before meals as ordered to start today. We will modify his Lantus to 20 units subcutaneously at bedtime daily to start tonight. We will continue the low dose correction scale using NovoLog insulin to obviate hypoglycemia, and detailed orders have been given. We will follow and advise accordingly. Mariana Ruelas MD
--- NOTE | 2018-07-14 01:26 | OP ---
PROCEDURE DATE: 07/12/2018 TIME OF SURGERY: 13:14. SURGEON: El Ward MD GAME TESTER: Dr. Hair, PGY 3; Daniella Villa MS3. TYPE OF ANESTHESIA: IV sedation, local. PREOPERATIVE DIAGNOSIS: Right back wound. POSTOPERATIVE DIAGNOSIS: Right back wound. OPERATION PERFORMED: Debridement of right back wound. SPECIMEN REMOVED: Debrided tissue. ESTIMATED BLOOD LOSS: 10 mL. DRAINS: None. DESCRIPTION OF PROCEDURE: An informed consent was obtained, and the patient was brought to the operating room, where a time-out was performed identifying correct patient and site. The patient was prepped and draped in sterile fashion, and 10 mL of 1% lidocaine with epinephrine was used to anesthetize the skin on the right back around the wound. Sharp dissection using a 10-blade was utilized to debride necrotic tissue from the wound bed. The wound cavity was found to be deep, at least 4 cm, after all necrotic tissue was debrided using scalpel and Dorado scissors. Electrocautery was used to control any bleeding, and once all the necrotic tissue had been debrided, the pulse drapery head former was also used in the wound to clean up any further exudate. Hemostasis was achieved using electrocautery and pressure. The wound was then copiously irrigated with saline and iodoform packing was used for hemostasis. All counts were correct at the end of the procedure. The patient tolerated the procedure well and was taken to PACU in stable condition. Stacie Hair DO El Ward MD
[2018-07-14] MEDS: Vancomycin 500mg/D5W 100 ml 500 MG/100 ML BAG IVPB SCH ×2 (04:55→13:23)
[2018-07-14] MEDS: Pantoprazole 40 mg EC Tab PO SCH (06:37)
[2018-07-14 08:16] VITALS: O2SAT 97
[2018-07-14] MEDS: (Novolog) Insulin Aspart, Recombinant 100 u/ml 10 ml vial SC SCH ×6 (08:16→18:01)
[2018-07-14] MEDS: Silver Sulfadiazine 1% Cream (20 gm) TOP SCH ×2 (10:16→18:02)
--- NOTE | 2018-07-14 11:34 | CP.PCM.PN ---
Subjective - Date & Time of Evaluation Date of Evaluation: 07/14/18 Time of Evaluation: 07:50 - Subjective Subjective: Surgery progress note for Dr. Ward Pt seen and examined at bedside this AM. No adverse events overnight. Pt denies any fevers, chills, minimal pain, has not been requesting pain medication Objective - Vital Signs/Intake and Output Vital Signs (last 24 hours): Temp Pulse Resp BP Pulse Ox 99.2 F 82 20 181/83 H 97 07/14/18 08:11 07/14/18 08:11 07/14/18 08:11 07/14/18 08:11 07/14/18 08:11 - Medications Medications: Current Medications Amlodipine Besylate (Norvasc) 10 mg PO DAILY [facility] Last Admin: 07/14/18 10:09 Dose: 10 mg Clonidine HCl (Catapres) 0.1 mg PO Q12H [facility] Last Admin: 07/14/18 10:10 Dose: Not Given Dextrose (Dextrose 50% Inj) 0 ml IV STAT PRN; Protocol PRN Reason: Hypoglycemia Protocol Dextrose (Glutose 15) 0 gm PO ONCE PRN; Protocol PRN Reason: Hypoglycemia Protocol Gabapentin (Neurontin) 100 mg PO TID [facility] Last Admin: 07/14/18 10:10 Dose: 100 mg Glucagon (Glucagen Diagnostic Kit) 0 mg IM STAT PRN; Protocol PRN Reason: Hypoglycemia Protocol Heparin Sodium (Porcine) (Heparin) 5,000 units SC Q12 [facility] Last Admin: 07/11/18 21:56 Dose: 5,000 units Hydralazine HCl (Apresoline) 25 mg PO BID [facility] Last Admin: 07/14/18 10:14 Dose: 25 mg Hydromorphone HCl (Dilaudid) 0.25 mg IVP Q5M PRN PRN Reason: Pain, moderate (4-7) Piperacillin Sod/Tazobactam Sod (Zosyn 2.25 Gm Iv Premix) 2.25 gm in 50 mls @ 100 mls/hr IVPB Q8H [facility]; Protocol Last Admin: 07/14/18 10:10 Dose: 100 mls/hr Vancomycin HCl/Dextrose (Vancocin) 500 mg in 100 mls @ 67 mls/hr IVPB Q12H [facility]; Protocol Stop: 07/15/18 14:01 Last Admin: 07/14/18 04:55 Dose: Not Given Insulin Aspart (Novolog) 0 unit SC ACHS [facility] Last Admin: 07/14/18 08:16 Dose: Not Given Insulin Aspart (Novolog) 8 unit SC AC [facility] Last Admin: 07/14/18 08:16 Dose: Not Given Insulin Glargine (Lantus) 20 unit SC HS [facility] Last Admin: 07/13/18 21:43 Dose: 20 units Losartan Potassium (Cozaar) 100 mg PO DAILY [facility] Last Admin: 07/14/18 10:09 Dose: 100 mg Oxycodone/Acetaminophen (Percocet 5/325 Mg Tab) 1 tab PO Q4H PRN PRN Reason: Pain, moderate (4-7) Stop: 07/15/18 13:17 Pantoprazole Sodium (Protonix Ec Tab) 40 mg PO ACB [facility] Last Admin: 07/14/18 06:37 Dose: 40 mg Silver Sulfadiazine (Silvadene 1% 20 Gm) 1 ea TOP BID [facility] Last Admin: 07/14/18 10:16 Dose: Not Given Tamsulosin HCl (Flomax) 0.4 mg PO DAILY [facility] Last Admin: 07/14/18 10:08 Dose: 0.4 mg - Labs Labs: 07/13/18 07:09 07/13/18 07:09 PT 11.7 SECONDS (9.7-12.2) 07/08/18 13:13 INR 1.1 07/08/18 13:13 APTT 40 SECONDS (21-34) H 07/08/18 13:13 - Constitutional Appears: Well, Non-toxic, No Acute Distress - Head Exam Head Exam: ATRAUMATIC, NORMOCEPHALIC - Eye Exam Eye Exam: Normal appearance. absent: Conjunctival injection, Scleral icterus - ENT Exam ENT Exam: Mucous Membranes Moist, Normal Oropharynx - Respiratory Exam Respiratory Exam: NORMAL BREATHING PATTERN. absent: Accessory Muscle Use, Respiratory Distress - Cardiovascular Exam Cardiovascular Exam: RRR - GI/Abdominal Exam GI & Abdominal Exam: Soft. absent: Distended - Back Exam Additional comments: incision site in the right lower back with dressing intact, old serosanguinous saturation, packing removed, small amount of peripheral exudate, removed with 4x4 gauze with healthy granulation tissue beneath. no bleeding, no expressible purulent fluid output. No surrounding erythema or fluctuance. Repacked with iodoform gauze - Neurological Exam Neurological Exam: Alert, Awake, Oriented x3 - Psychiatric Exam Psychiatric exam: Normal Affect, Normal Mood - Skin Skin Exam: Dry, Normal Color, Warm Assessment and Plan - Assessment and Plan (Free Text) Assessment: 68M POD#2 s/p incision and drainage of right back abscess Plan: Continue antibiotics while inpatient PRN pain medication Dressing care demonstrated to patient at bedside, can be continued by patient at home Clear for discharge with follow up in Dr. Ward's office in 2 weeks Antibiotics per primary Discussed with Dr. Ward, who agrees with above Chantel Heart, PGY2
[2018-07-14 16:46] VITALS: BP 188/82; PULSE 70; TEMP 98
--- NOTE | 2018-07-14 17:15 | CP.PCM.DIS ---
Provider - Provider Date of Admission: 07/08/18 14:42 Attending physician: Liset Sifuentes MD Primary care physician: Tatianna Sifuentes Consults: Dr. Montiel. Dr Suraj Goldman Time Spent in preparation of Discharge (in minutes): 45 Diagnosis - Discharge Diagnosis (1) Wound infection Status: Acute Priority: High (2) Hypertension, uncontrolled Status: Chronic Priority: High (3) Uncontrolled diabetes mellitus Status: Chronic Priority: High (4) CKD (chronic kidney disease), stage IV Status: Chronic Priority: High (5) Postural dizziness with near syncope Status: Resolved Priority: High Hospital Course - Lab Results Lab Results: Micro Results 07/12/18 Unknown Back Gram Stain - Final 07/12/18 Unknown Back Wound Culture - Preliminary Gram Negative James Gram Positive Cocci 07/08/18 14:00 Blood Blood Culture - Final NO GROWTH AFTER 5 DAYS 07/08/18 14:00 Blood Gram Stain - Final TEST NOT PERFORMED 07/08/18 13:13 Blood Blood Culture - Final NO GROWTH AFTER 5 DAYS 07/08/18 13:13 Blood Gram Stain - Final TEST NOT PERFORMED 07/08/18 13:34 Urine Urine Culture - Final Gram Positive Cocci 07/08/18 13:34 Abscess - Back Gram Stain - Final 07/08/18 13:34 Abscess - Back Wound Culture - Final Serratia Marcescens Methicillin Resistant S Aureus Most Recent Lab Values WBC 9.6 K/uL (4.8-10.8) 07/13/18 07:09 RBC 2.94 Mil/uL (4.40-5.90) L 07/13/18 07:09 Hgb 8.5 g/dL (12.0-18.0) L 07/13/18 07:09 Hct 24.1 % (35.0-51.0) L 07/13/18 07:09 MCV 82.1 fL (80.0-94.0) 07/13/18 07:09 MCH 29.1 pg (27.0-31.0) 07/13/18 07:09 MCHC 35.4 g/dL (33.0-37.0) 07/13/18 07:09 RDW 16.9 % (11.5-14.5) H 07/13/18 07:09 Plt Count 276 K/uL (130-400) 07/13/18 07:09 MPV 8.3 fL (7.2-11.7) 07/13/18 07:09 Neut % (Auto) 37.8 % (50.0-75.0) L 07/11/18 07:32 Lymph % (Auto) 29.6 % (20.0-40.0) 07/11/18 07:32 [place] % (Auto) 5.9 % (0.0-10.0) 07/11/18 07:32 Eos % (Auto) 23.2 % (0.0-4.0) H 07/11/18 07:32 Baso % (Auto) 1.4 % (0.0-2.0) 07/11/18 07:32 Neut # (Auto) 2.7 K/uL (1.8-7.0) 07/11/18 07:32 Lymph # (Auto) 2.1 K/uL (1.0-4.3) 07/11/18 07:32 [place] # (Auto) 0.4 K/uL (0.0-0.8) 07/11/18 07:32 Eos # (Auto) 1.7 K/uL (0.0-0.7) H 07/11/18 07:32 Baso # (Auto) 0.3 K/uL (0.0-0.2) H 07/11/18 07:32 Neutrophils % (Manual) 35 % (50-75) L 07/11/18 07:32 Band Neutrophils % 2 % (0-2) 07/08/18 13:13 Lymphocytes % (Manual) 32 % (20-40) 07/11/18 07:32 Reactive Lymphs % 1 % (0-0) H 07/11/18 07:32 Monocytes % (Manual) 4 % (0-10) 07/11/18 07:32 Eosinophils % (Manual) 28 % (0-4) H 07/11/18 07:32 Basophils % (Manual) 1 % (0-2) 07/08/18 13:13 Platelet Estimate Normal (NORMAL) 07/11/18 07:32 Polychromasia Slight 07/08/18 13:13 Hypochromasia (manual) Slight 07/11/18 07:32 Poikilocytosis (manual Slight 07/11/18 07:32 Anisocytosis (manual) Slight 07/11/18 07:32 Target Cells Slight 07/11/18 07:32 Ovalocytes Slight 07/11/18 07:32 PT 11.7 SECONDS (9.7-12.2) 07/08/18 13:13 INR 1.1 07/08/18 13:13 APTT 40 SECONDS (21-34) H 07/08/18 13:13 pO2 49 mm/Hg (30-55) 07/08/18 16:05 VBG pH 7.37 (7.32-7.43) 07/08/18 16:05 VBG pCO2 37 mmHg (40-60) L 07/08/18 16:05 VBG HCO3 21.9 mmol/L 07/08/18 16:05 VBG Total CO2 22.5 mmol/L (22-28) 07/08/18 16:05 VBG O2 Sat (Calc) 90.5 % (40-65) H 07/08/18 16:05 VBG Base Excess -3.4 mmol/L (0.0-2.0) L 07/08/18 16:05 VBG Potassium 4.6 mmol/L (3.6-5.2) 07/08/18 16:05 Sodium 138.0 mmol/l (132-148) 07/08/18 16:05 Chloride 113.0 mmol/L (98-107) H 07/08/18 16:05 Glucose 244 mg/dl (75-110) H 07/08/18 16:05 Lactate 0.8 mmol/L (0.7-2.1) 07/08/18 16:05 FiO2 21.0 % 07/08/18 16:05 Sodium 138 mmol/L (132-148) 07/13/18 07:09 Potassium 3.9 mmol/L (3.6-5.2) 07/13/18 07:09 Chloride 111 mmol/L (98-107) H 07/13/18 07:09 Carbon Dioxide 16 mmol/L (22-30) L 07/13/18 07:09 Anion Gap 16 (10-20) 07/13/18 07:09 BUN 35 mg/dL (9-20) H 07/13/18 07:09 Creatinine 2.9 mg/dL (0.8-1.5) H 07/13/18 07:09 Est GFR ( Amer) 26 07/13/18 07:09 Est GFR (Non-Af Amer) 22 07/13/18 07:09 POC Glucose (mg/dL) 230 mg/dL (65-110) H 07/14/18 11:55 Random Glucose 188 mg/dL (75-110) H 07/13/18 07:09 Hemoglobin A1c 9.9 % (4.2-6.5) H 07/09/18 09:19 Calcium 8.0 mg/dl (8.6-10.4) L 07/13/18 07:09 Phosphorus 5.4 mg/dL (2.5-4.5) H 07/08/18 13:13 Magnesium 2.4 mg/dL (1.6-2.3) H 07/08/18 13:13 Total Bilirubin 0.6 mg/dL (0.2-1.3) 07/11/18 07:32 AST 36 U/L (17-59) 07/11/18 07:32 ALT 55 U/L (21-72) 07/11/18 07:32 Alkaline Phosphatase 211 U/L (38-126) H 07/11/18 07:32 Total Creatine Kinase 95 U/L (55-170) 07/09/18 16:38 CK-MB (Mass) 1.48 ng/mL (0.0-3.38) 07/09/18 16:38 Troponin I 0.0240 ng/mL (0.00-0.120) 07/09/18 16:38 Total Protein 5.4 g/dL (6.3-8.3) L 07/11/18 07:32 Albumin 2.6 g/dL (3.5-5.0) L 07/11/18 07:32 Globulin 2.8 gm/dL (2.2-3.9) 07/11/18 07:32 Albumin/Globulin Ratio 0.9 (1.0-2.1) L 07/11/18 07:32 Free T4 1.11 ng/dL (0.78-2.19) 07/10/18 07:11 TSH 3rd Generation 3.81 mIU/L (0.46-4.68) 07/10/18 07:11 Venous Blood Potassium 4.6 mmol/L (3.6-5.2) 07/08/18 16:05 Urine Color Yellow (YELLOW) 07/08/18 13:34 Urine Clarity Clear (Clear) 07/08/18 13:34 Urine pH 6.0 (5.0-8.0) 07/08/18 13:34 Ur Specific [place] 1.013 (1.003-1.030) 07/08/18 13:34 Urine Protein 3+ mg/dL (NEGATIVE) H 07/08/18 13:34 Urine Glucose (UA) 1+ mg/dL (Normal) H 07/08/18 13:34 Urine Ketones Negative mg/dL (NEGATIVE) 07/08/18 13:34 Urine Blood Negative (NEGATIVE) 07/08/18 13:34 Urine Nitrate Negative (NEGATIVE) 07/08/18 13:34 Urine Bilirubin Negative (NEGATIVE) 07/08/18 13:34 Urine Urobilinogen Normal mg/dL (0.2-1.0) 07/08/18 13:34 Ur Leukocyte Esterase Neg Radha/uL (Negative) 07/08/18 13:34 Urine WBC (Auto) 1 /hpf (0-5) 07/08/18 13:34 Urine RBC (Auto) < 1 /hpf (0-3) 07/08/18 13:34 Ur Squamous Epith Cells < 1 /hpf (0-5) 07/08/18 13:34 Urine Bacteria Rare (<OCC) 07/08/18 13:34 Hyaline Casts 0-2 /lpf (0-2) 07/08/18 13:34 Vancomycin Trough 23.3 ug/mL (5.0-10.0) H 07/14/18 04:00 Discharge Exam - Head Exam Head Exam: ATRAUMATIC, NORMOCEPHALIC Discharge Plan - Discharge Medications Prescriptions: hydrALAZINE [Apresoline] 25 mg PO BID #60 tab cloNIDine [Catapres] 0.1 mg PO Q12H #60 tab Gabapentin [Neurontin] 100 mg PO TID #90 cap Insulin Aspart, Recombinant [Novolog] 8 unit SC AC #2 - Follow Up Plan Condition: STABLE Disposition: HOME/ ROUTINE Instructions: Diabetes Exchange Diet, Skin Abscess, Syncope (Fainting) (DC), Debridement of a Wound or Burn (DC), Chronic Kidney Disease (DC), Wound Inf ection, Renal Failure Diet (DC) Additional Instructions: office follow up in 2 weeks Outpatient office follow up with Drs. Ward and Suraj Referrals: El Ward MD [Staff Provider] - Suraj,Mariana Nicholson MD [Medical Doctor] - Liset Sifuentes MD [Staff Provider] -
--- NOTE | 2018-07-14 20:07 | PN ---
DATE: 07/14/2018 ENDOCRINOLOGY FOLLOWUP NOTE LOCATION: Room 667. SUBJECTIVE: This is a 68-year-old male with recent uncontrolled type 2 insulin requiring diabetes, now being followed closely for metabolic management. His glycemic levels are fluctuating, but improved, and the glucose values overnight have ranged from 71 to 216 and 238 mg/dL. His glucose levels at lunch time today was 230 mg/dL. His chemistry showed a BUN of 35, sodium 138, potassium 3.9, chloride 111, CO2 of 16, glucose 188, and creatinine 2.9. So, at this time, we will modify his basal insulin and lower the Lantus to 18 units subcutaneous at bedtime daily to start tonight. We will continue the low-dose correction scale, using Novolog insulin only for glucose levels above 300 as ordered. We will also lower his basal insulin with Lantus to be given as 18 units subcutaneous at bedtime daily as ordered. Moreover, we will continue the Novolog given as 8 units t.i.d. before meals as given. We will obtain serial chemistries and supplement accordingly as needed. We will follow. Mariana Ruelas MD
[2018-07-14] MEDS ORDERED: (Lantus) Insulin Glargine, Recombinant SC SCH (22:00)
--- NOTE | 2018-07-19 16:36 | CARD ---
APPROVED REPORT Date of service: 07/08/2018 EKG Measurement Heart [id number] <Conclusion> Normal sinus rhythm Normal ECG
== END 2018-07-14 19:02 | disposition home or self-care (01) | DRG 564 ==
LOC: C.ER 11:32 → C.9E 14:42 → C.6T 16:30
PROVIDERS: ADMIT Internal Medicine Cardiovascular Disease; ATTEND Internal Medicine Cardiovascular Disease
PROC: 0JB70ZZ Excision of Back Subcutaneous Tissue and Fascia, Open Approach (ICD-10-PCS; principal; 2018-07-12 12:00)
DX: L02.211 Cutaneous abscess of abdominal wall (principal); N17.9 Acute kidney failure, unspecified; E11.21 Type 2 diabetes mellitus with diabetic nephropathy; E11.649 Type 2 diabetes mellitus with hypoglycemia without coma; E11.22 Type 2 diabetes mellitus with diabetic chronic kidney disease; B02.29 Other postherpetic nervous system involvement; N18.4 Chronic kidney disease, stage 4 (severe); I65.29 Occlusion and stenosis of unspecified carotid artery; L02.212 Cutaneous abscess of back [any part, except buttock and flank]; E11.65 Type 2 diabetes mellitus with hyperglycemia; E78.5 Hyperlipidemia, unspecified; I12.9 Hypertensive chronic kidney disease with stage 1 through stage 4 chronic kidney disease, or unspecified chronic kidney disease; Z79.4 Long term (current) use of insulin; Z87.891 Personal history of nicotine dependence; L29.9 Pruritus, unspecified; R55 Syncope and collapse